=== PATIENT | female | born 1950 | race Hispanic/Latino ===

== ENCOUNTER → 2018-01-10 | Outpatient (CLI) | payer OTHER ==
[~2018-01-10] MED LIST: ASPI-555 PO; CYAN1TAB48 PO; INSU100I21 SQ; INSU200I SQ; LOSA1TAB54 PO; OMEP20CA10 PO; ROSU10TA PO; SERT50TA12 PO; UBID50TA3 PO; centrum PO; diltiazem PO; metoprolol er PO
== END | disposition home or self-care (01) ==
LOC: SHCH 08:08
PROVIDERS: ATTEND Internal Medicine Cardiovascular Disease
DX: I10 Essential (primary) hypertension (principal); E11.9 Type 2 diabetes mellitus without complications
CPT/HCPCS: 93975

== ENCOUNTER 2018-07-31 15:59 | Emergency (ER) | payer OTHER ==
[2018-07-31 16:37] LABS: BASOPHILS % (AUTO) 0.6 % (0.0-5.0); HEMATOCRIT 43.9 % (36-48); LYMPHOCYTES % (AUTO) 26.4 % (21.0-51.0); MEAN CORPUSCULAR HEMOGLOBIN 25.9 pg (27.0-33.0); MEAN CORPUSCULAR HGB CONC 33.2 g/dL (32.0-36.0); MEAN CORPUSCULAR VOLUME 78.1 fL (79-99); MONOCYTES % (AUTO) 6.1 % (3.0-13.0); NEUTROPHILS % (AUTO) 65.9 % (40.0-77.0); NUCLEATED RED BLOOD CELLS 0.1 % (0.0-0.19); PLATELET COUNT (AUTO) 294 K/uL (130-400); RED BLOOD CELL COUNT(AUTO) 5.62 MIL/uL (4.00-5.50); WHITE BLOOD COUNT (AUTO) 10.8 K/uL (4.8-10.8)
[2018-07-31 16:50] LABS: CREATININE 0.9 mg/dL (0.5-1.5); POTASSIUM 3.9 mmol/L (3.5-5.1)
[2018-07-31 16:52] LABS: INR 0.89 (0.85-1.15); PARTIAL THROMBOPLASTIN TIME 27.2 SEC (26.3-35.5); PROTHROMBIN TIME 9.4 SEC (9.6-11.6)
[2018-07-31 16:54] LABS: ALBUMIN 4.1 g/dL (3.5-5.0); BILIRUBIN,DIRECT 0.1 mg/dL (0.0-0.3); BILIRUBIN,TOTAL 0.4 mg/dL (0.2-1.0); TOTAL PROTEIN, SERUM 8.3 g/dL (6.0-8.3)
[2018-07-31] MEDS ORDERED: ONDANSETRON HCL 4 MG/2 ML VIAL ONE (16:59)
[2018-07-31] MEDS ORDERED: MORPHINE SULFATE 4 MG/1ML SYG ONE (17:00)
[2018-07-31 17:15] LABS: APPEARANCE,URINE Clear (CLEAR); BILIRUBIN,URINE Negative (NEGATIVE); COLOR,URINE Yellow (YELLOW); GLUCOSE, URINE (UA) >=1000 mg/dL (NEGATIVE); KETONES,URINE Negative (NEGATIVE); LEUKOCYTE ESTERASE ,URINE Moderate (NEGATIVE); NITRATE,URINE Negative (NEGATIVE); OCCULT BLOOD,URINE Negative (NEGATIVE); PH,URINE 5.5 (5.0-8.0); PROTEIN,URINE Negative (NEGATIVE); UROBILINOGEN,URINE 0.2 mg/dL (0.2-1.0)
[2018-07-31 17:20] LABS: BACTERIA,URINE Few /HPF (None Seen); RBC,URINE 0-1 /HPF (0-1); YEAST,URINE BUDDING Rare /HPF (None Seen)
[2018-07-31 17:21] LABS: MUCUS,URINE Rare LPF (None Seen); SQUAMOUS EPITHELIAL CELL,UR Few /HPF (0-2)
== END 2018-07-31 17:48 | disposition home or self-care (01) ==
LOC: EDH 15:59
DX: S40.011A Contusion of right shoulder, initial encounter (principal); S50.11XA Contusion of right forearm, initial encounter; S20.211A Contusion of right front wall of thorax, initial encounter; R42 Dizziness and giddiness; I10 Essential (primary) hypertension; E78.5 Hyperlipidemia, unspecified; E11.9 Type 2 diabetes mellitus without complications; Z90.710 Acquired absence of both cervix and uterus; Z79.4 Long term (current) use of insulin; Z98.890 Other specified postprocedural states; W18.39XA Other fall on same level, initial encounter; Y93.89 Activity, other specified; Y92.89 Other specified places as the place of occurrence of the external cause; Y99.8 Other external cause status
CPT/HCPCS: 36415; 70450; 73030; 73060; 73090; 80048; 80076; 81001; 82550; 84484; 85025; 85610; 85730; 93005; 96374; 96375; 99284; J2270; J2405

== ENCOUNTER → 2019-04-14 | Outpatient (CLI) | payer OTHER ==
[~2019-04-14] MED LIST changes: +OMEP-50 PO; -OMEP20CA10 PO; -ROSU10TA PO; +ROSU10TA22 PO
== END | disposition home or self-care (01) ==
LOC: RAH 10:44
PROVIDERS: ATTEND Internal Medicine Gastroenterology
DX: R10.13 Epigastric pain (principal); R14.0 Abdominal distension (gaseous); R11.2 Nausea with vomiting, unspecified
CPT/HCPCS: 78264; A9541

== ENCOUNTER → 2020-06-23 | Outpatient (CLI) | payer OTHER ==
[~2020-06-23] MED LIST changes: -ASPI-555 PO; +ASPI-556 PO; -OMEP-50 PO; +OMEP20CA12 PO
== END | disposition home or self-care (01) ==
LOC: SHCH 13:27
PROVIDERS: ATTEND Internal Medicine Cardiovascular Disease
DX: R07.9 Chest pain, unspecified (principal)
CPT/HCPCS: 93306; 93356

== ENCOUNTER → 2020-07-08 | Outpatient (CLI) | payer OTHER | END | disposition home or self-care (01) | LOC: RAH 13:45 | PROVIDERS: ATTEND Internal Medicine Cardiovascular Disease | DX: Z13.6 Encounter for screening for cardiovascular disorders (principal) | CPT/HCPCS: 75571 ==

== ENCOUNTER 2020-08-19 05:51 | Day surgery (SDC) | payer OTHER ==
[2020-08-17 11:30] VITALS: BP 122/60
[2020-08-17 11:50] LABS: BASOPHILS % (AUTO) 0.6 % (0.0-5.0); EOSINOPHILS % (AUTO) 0.3 % (0.0-8.0); HEMATOCRIT 44.2 % (36-48); MEAN CORPUSCULAR HEMOGLOBIN 25.7 pg (27.0-33.0); MEAN CORPUSCULAR HGB CONC 31.7 g/dL (32.0-36.0); MEAN CORPUSCULAR VOLUME 81.1 fL (79-99); MONOCYTES % (AUTO) 5.9 % (3.0-13.0); NEUTROPHILS % (AUTO) 68.8 % (40.0-77.0); PLATELET COUNT (AUTO) 364 K/uL (130-400); RED BLOOD CELL COUNT(AUTO) 5.45 MIL/uL (4.00-5.50); RED CELL DISTRIBUTION WIDTH 14.6 % (11.0-15.5); WHITE BLOOD COUNT (AUTO) 10.3 K/uL (4.8-10.8)
[2020-08-17 11:52] LABS: APPEARANCE,URINE Clear (CLEAR); BILIRUBIN,URINE Negative (NEGATIVE); COLOR,URINE Yellow (YELLOW); GLUCOSE, URINE (UA) >=1000 mg/dL (NEGATIVE); KETONES,URINE Negative (NEGATIVE); LEUKOCYTE ESTERASE ,URINE Trace (NEGATIVE); NITRATE,URINE Negative (NEGATIVE); OCCULT BLOOD,URINE Negative (NEGATIVE); PROTEIN,URINE Negative (NEGATIVE); UROBILINOGEN,URINE 0.2 mg/dL (0.2-1.0)
[2020-08-17 11:55] LABS: CREATININE 1.1 mg/dL (0.5-1.5); POTASSIUM 4.8 mmol/L (3.5-5.1)
[2020-08-17 12:01] LABS: BACTERIA,URINE Few /HPF (None Seen); RBC,URINE 0-1 /HPF (0-1); WBC,URINE 0-1 /HPF (0-1); YEAST,URINE BUDDING Few /HPF (None Seen)
[2020-08-17 12:01] LABS: INR 0.96 (0.85-1.15); PROTHROMBIN TIME 10.3 SEC (9.6-11.6)
[2020-08-17 12:02] LABS: PARTIAL THROMBOPLASTIN TIME 27.3 SEC (26.3-35.5)
[2020-08-19] VITALS (9 sets, daily range): BP systolic 125–145; BP diastolic 50–67
[~2020-08-19] VITALS: Ht 160 cm; Wt 72.3 kg
[~2020-08-19 05:51] MED LIST changes: +CANA300T PO; -CYAN1TAB48 PO; +DULA1.5P SQ; +FLUT16H NS; +HC2530O TP; +HYDR25TA PO; +INSU100I13 SQ; -INSU100I21 SQ; -INSU200I SQ; +LOSA100T58 PO; -LOSA1TAB54 PO; +METF-446 PO; -OMEP20CA12 PO; +PANT40TA54 PO; -ROSU10TA22 PO; +SERT100T12 PO; -SERT50TA12 PO; +SODIUM CHLORIDE 0.9% 500ML 500 ML IV SCH; +SUCR1TAB2 PO; -UBID50TA3 PO; +WHEA1POW2 PO; +[UNRECOGNIZED DRUG - OTHER] TP; -centrum PO; -metoprolol er PO
[2020-08-19] MEDS ORDERED: SODIUM CHLORIDE 0.9% 1000ML 1,000 ML IV ONE (07:26)
[2020-08-19] MEDS ORDERED: SODIUM BICARB 50MEQ 50ML VIAL 50 ML ONE (09:21)
[2020-08-19] MEDS ORDERED: IOHEXOL-350 50ML VIAL IV ONE (09:21)
[2020-08-19] MEDS ORDERED: HEPARIN SODIUM 1000UNIT/ML 10ML VIAL ONE (09:21)
[2020-08-19] MEDS ORDERED: IOHEXOL 350 MG/ML 100ML INFUS..BTL IV ONE (09:21)
[2020-08-19] MEDS ORDERED: NITROGLYCERIN 2 MG/VIAL VIAL IV ONE (09:21)
[2020-08-19] MEDS ORDERED: MEPERIDINE-PF 25 MG/ML SYG ONE ×2 (09:21→10:03)
[2020-08-19] MEDS ORDERED: LIDOCAINE HCL 2% 20ML ONE (09:22)
[2020-08-19] MEDS ORDERED: MIDAZOLAM HCL 1 MG/ML 2ML VIAL ONE ×2 (09:22→10:03)
[2020-08-19] MEDS ORDERED: NICARDIPINE HCL 25 MG/10 ML ML IV ONE (09:22)
[2020-08-19] MEDS ORDERED: DEXTROSE 50%-WATER 50 ML DISP.SYRIN IV PRN (10:45)
[2020-08-19] MEDS ORDERED: SODIUM CHLORIDE 0.9% 1000ML 1,000 ML IV SCH (10:45)
[2020-08-19] MEDS ORDERED: INSULIN HUMULIN R 100 UNIT/ML 3ML SQ SCH (11:30)
== END 2020-08-19 15:00 | disposition home or self-care (01) ==
LOC: DAH 05:51
PROVIDERS: ATTEND Internal Medicine Cardiovascular Disease
DX: I25.119 Atherosclerotic heart disease of native coronary artery with unspecified angina pectoris (principal); E11.9 Type 2 diabetes mellitus without complications; E78.5 Hyperlipidemia, unspecified; G47.33 Obstructive sleep apnea (adult) (pediatric); M79.7 Fibromyalgia; F41.9 Anxiety disorder, unspecified; E66.9 Obesity, unspecified; Z79.4 Long term (current) use of insulin; Z79.899 Other long term (current) drug therapy; Z98.890 Other specified postprocedural states; Z82.49 Family history of ischemic heart disease and other diseases of the circulatory system; Z79.01 Long term (current) use of anticoagulants
CPT/HCPCS: 36415; 71045; 80048; 81001; 82948 ×2; 85025; 85610; 85730; 93005; 93458; C1769 ×2; C1894; J1644 ×2; J1815; J2175 ×2; J2250 ×2; J3490 ×4; J7030; Q9965; Q9967 ×2; 99156; 99157

== ENCOUNTER 2020-12-27 11:25 | Emergency (ER) | payer OTHER ==
[~2020-12-27 11:25] MED LIST changes: +SERT-440 PO; -SERT100T12 PO; -SODIUM CHLORIDE 0.9% 500ML 500 ML IV SCH
[2020-12-27] MEDS ORDERED: HYDROCODONE/ACETAMINOPHEN 10/325 MG TAB ONE (11:55)
== END 2020-12-27 12:50 | disposition home or self-care (01) ==
LOC: EDH 11:25
DX: S93.491A Sprain of other ligament of right ankle, initial encounter (principal); M25.561 Pain in right knee; E11.9 Type 2 diabetes mellitus without complications; I10 Essential (primary) hypertension; E78.5 Hyperlipidemia, unspecified; Z88.2 Allergy status to sulfonamides; Z88.1 Allergy status to other antibiotic agents; Z90.710 Acquired absence of both cervix and uterus; Z98.890 Other specified postprocedural states; X58.XXXA Exposure to other specified factors, initial encounter; Y93.89 Activity, other specified; Y92.89 Other specified places as the place of occurrence of the external cause; Y99.8 Other external cause status
CPT/HCPCS: 73562; 73600; 73630

== ENCOUNTER 2021-01-26 08:02 | Day surgery (SDC) | payer OTHER ==
[2021-01-24 10:14] LABS: BASOPHILS % (AUTO) 0.5 % (0.0-5.0); EOSINOPHILS % (AUTO) 0.5 % (0.0-8.0); HEMATOCRIT 43.9 % (36-48); LYMPHOCYTES % (AUTO) 18.2 % (21.0-51.0); MEAN CORPUSCULAR HEMOGLOBIN 25.5 pg (27.0-33.0); MEAN CORPUSCULAR HGB CONC 31.2 g/dL (32.0-36.0); MEAN CORPUSCULAR VOLUME 81.8 fL (79-99); NEUTROPHILS % (AUTO) 74.4 % (40.0-77.0); PLATELET COUNT (AUTO) 318 K/uL (130-400); RED BLOOD CELL COUNT(AUTO) 5.37 MIL/uL (4.00-5.50); RED CELL DISTRIBUTION WIDTH 14.6 % (11.0-15.5)
[2021-01-24 10:21] LABS: CREATININE 0.8 mg/dL (0.5-1.5); POTASSIUM 4.1 mmol/L (3.5-5.1)
[2021-01-25 12:23] VITALS: BP 140/70
[~2021-01-26] VITALS: Ht 160 cm; Wt 74.7 kg
[2021-01-26] VITALS (19 sets, daily range): BP systolic 103–119; BP diastolic 47–65
[~2021-01-26 08:02] MED LIST changes: -ASPI-556 PO; +DILT240C94 PO; +FAMO40TA7 PO; -FLUT16H NS; -HC2530O TP; +HUMLIS7525 SQ; -INSU100I13 SQ; +PRAV40TA3 PO; -SUCR1TAB2 PO; -WHEA1POW2 PO; -[UNRECOGNIZED DRUG - OTHER] TP; -diltiazem PO
[2021-01-26] MEDS ORDERED: LACTATED RINGERS 1000ML 0 ML IV ONE (08:23)
[2021-01-26] MEDS ORDERED: CEFAZOLIN SODIUM 1 GM VIAL ONE (08:23)
[2021-01-26] MEDS ORDERED: 0.9%NACL 1000ML 1,000 ML IV ONE (08:34)
[2021-01-26] MEDS ORDERED: DEXAMETHASONE SOD PHOSPHATE 10MG/ML 1ML VIAL ONE (09:57)
[2021-01-26] MEDS ORDERED: SUCCINYLCHOLINE CHLORIDE 20 MG/ML 10 ML VIAL ONE (09:57)
[2021-01-26] MEDS ORDERED: ONDANSETRON 4MG INJ ONE (09:57)
[2021-01-26] MEDS ORDERED: LIDOCAINE PF 100MG/5ML (2%) SYRINGE 5ML ONE (09:57)
[2021-01-26] MEDS ORDERED: NEOSTIGMINE 5MG/5ML SYR IV ONE (09:58)
[2021-01-26] MEDS ORDERED: ROCURONIUM 10MG/1ML SYR 10 MG/ML ML ONE (09:58)
[2021-01-26] MEDS ORDERED: PROPOFOL 10 MG/ML 20ML VIAL IV ONE (09:58)
[2021-01-26] MEDS ORDERED: MIDAZOLAM HCL 1 MG/ML 2ML VIAL ONE (09:58)
[2021-01-26] MEDS ORDERED: GLYCOPYRROLATE 1 MG/5 ML SYRINGE ONE (09:58)
[2021-01-26] MEDS ORDERED: FENTANYL CITRATE PF 50 MCG/1 ML 5ML AMP IV ONE (09:59)
[2021-01-26] MEDS ORDERED: MEPERIDINE-PF 25 MG/ML SYG ONE ×3 (10:02→12:54)
[2021-01-26] MEDS ORDERED: CLINDAMYCIN IVPB 900MG/50ML 50 ML IV ONE (10:08)
[2021-01-26] MEDS ORDERED: CLINDAMYCIN 900MG/6ML INJ ONE (10:20)
[2021-01-26] MEDS ORDERED: EPHEDRINE SULFATE 50 MG/ML AMPULE ONE (10:48)
[2021-01-26] MEDS ORDERED: ACET1TAB25 PO (12:43)
[2021-01-26] MEDS ORDERED: CLIN300C10 PO (12:43)
[2021-01-26] MEDS ORDERED: MORPHINE 2 MG SYG ONE (13:14)
== END 2021-01-26 15:10 | disposition home or self-care (01) ==
LOC: DAH 08:02
PROVIDERS: ATTEND Orthopaedic Surgery
DX: T84.84XA Pain due to internal orthopedic prosthetic devices, implants and grafts, initial encounter (principal); Z20.822 Contact with and (suspected) exposure to COVID-19; M71.379 Other bursal cyst, unspecified ankle and foot; I10 Essential (primary) hypertension; K21.9 Gastro-esophageal reflux disease without esophagitis; E78.5 Hyperlipidemia, unspecified; E11.9 Type 2 diabetes mellitus without complications; G47.33 Obstructive sleep apnea (adult) (pediatric); E66.9 Obesity, unspecified; F41.9 Anxiety disorder, unspecified; M79.7 Fibromyalgia; Z82.49 Family history of ischemic heart disease and other diseases of the circulatory system; Z98.890 Other specified postprocedural states; Z88.8 Allergy status to other drugs, medicaments and biological substances; Z88.2 Allergy status to sulfonamides; Z87.81 Personal history of (healed) traumatic fracture; Z90.710 Acquired absence of both cervix and uterus; Y83.8 Other surgical procedures as the cause of abnormal reaction of the patient, or of later complication, without mention of misadventure at the time of the procedure
CPT/HCPCS: 20680; 36415; 73610; 80048; 82948; 85025; 87635; 93005; A4215; A4221; A4222; A4223; A4649; A4930 ×2; A5120; A6223; C9803; J0330; J0690; J1100; J2001; J2175 ×3; J2250; J2405; J2704; J2710; J3010; J3490 ×3; J7030; J7120

== ENCOUNTER → 2022-02-27 | Outpatient (CLI) | payer OTHER ==
[~2022-02-27] MED LIST changes: +ACET-2079 PO; +CLIN-141 PO
== END | disposition home or self-care (01) ==
LOC: SHCH 11:21
PROVIDERS: ATTEND Internal Medicine Cardiovascular Disease
DX: I50.32 Chronic diastolic (congestive) heart failure (principal)
CPT/HCPCS: 93306

== ENCOUNTER → 2022-03-21 | Outpatient (CLI) | payer OTHER ==
[~2022-03-21] MED LIST changes: +IOHEXOL 350 MG/ML 100ML INFUS..BTL IV ONE; +METOPROLOL TARTRATE 1 MG/ML 5ML VIAL IV ONE
== END | disposition home or self-care (01) ==
LOC: RAH 08:53
PROVIDERS: ATTEND Internal Medicine Cardiovascular Disease
DX: I25.119 Atherosclerotic heart disease of native coronary artery with unspecified angina pectoris (principal); I10 Essential (primary) hypertension
CPT/HCPCS: 75574; J3490; Q9967

== ENCOUNTER → 2022-08-30 | Outpatient (CLI) | payer OTHER ==
[~2022-08-30] MED LIST changes: +CEFU500T67 PO; -IOHEXOL 350 MG/ML 100ML INFUS..BTL IV ONE; -METOPROLOL TARTRATE 1 MG/ML 5ML VIAL IV ONE
== END | disposition home or self-care (01) ==
LOC: RAH 09:25
PROVIDERS: ATTEND Internal Medicine Gastroenterology
DX: K44.9 Diaphragmatic hernia without obstruction or gangrene (principal)
CPT/HCPCS: 74240

== ENCOUNTER 2022-08-31 14:59 | Emergency (ER) | payer OTHER ==
[~2022-08-31] VITALS: Ht 160 cm; Wt 74.8 kg
[~2022-08-31 14:59] MED LIST changes: -CEFU500T67 PO
[2022-08-31 15:55] LABS: BASOPHILS % (AUTO) 0.5 % (0.0-5.0); EOSINOPHILS % (AUTO) 1.3 % (0.0-8.0); HEMATOCRIT 40.7 % (36-48); LYMPHOCYTES % (AUTO) 25.8 % (21.0-51.0); MEAN CORPUSCULAR HEMOGLOBIN 25.2 pg (27.0-33.0); MEAN CORPUSCULAR HGB CONC 31.9 g/dL (32.0-36.0); MEAN CORPUSCULAR VOLUME 78.9 fL (79-99); MONOCYTES % (AUTO) 7.7 % (3.0-13.0); NEUTROPHILS % (AUTO) 64.4 % (40.0-77.0); PLATELET COUNT (AUTO) 279 K/uL (130-400); RED BLOOD CELL COUNT(AUTO) 5.16 MIL/uL (4.00-5.50); RED CELL DISTRIBUTION WIDTH 15.2 % (11.0-15.5); WHITE BLOOD COUNT (AUTO) 10.3 K/uL (4.8-10.8)
[2022-08-31 15:58] LABS: APPEARANCE,URINE CLOUDY (CLEAR); BILIRUBIN,URINE NEGATIVE (NEGATIVE); COLOR,URINE LIGHT-YELLOW (YELLOW); GLUCOSE, URINE (UA) >=1000 mg/dL (NEGATIVE); KETONES,URINE NEGATIVE (NEGATIVE); LEUKOCYTE ESTERASE ,URINE 500 Leu/uL (NEGATIVE); NITRATE,URINE NEGATIVE (NEGATIVE); OCCULT BLOOD,URINE NEGATIVE (NEGATIVE); PH,URINE 5.5 (5.0-8.0); PROTEIN,URINE NEGATIVE (NEGATIVE); UROBILINOGEN,URINE 0.2 mg/dL (0.2-1.0)
[2022-08-31 16:03] LABS: BACTERIA,URINE FEW /HPF (None Seen); RBC,URINE 0-1 /HPF (0-1); SQUAMOUS EPITHELIAL CELL,UR RARE /HPF (0-2); WBC,URINE >100 /HPF (0-1)
[2022-08-31 16:06] LABS: CREATININE 0.9 mg/dL (0.5-1.5); POTASSIUM 3.5 mmol/L (3.5-5.1)
[2022-08-31 16:17] LABS: B-TYPE NATRIURETIC PEPTIDE 32 pg/mL (0-100)
[2022-08-31 16:19] LABS: ALBUMIN 3.8 g/dL (3.5-5.0); MAGNESIUM 1.4 mg/dL (1.80-2.40); TOTAL PROTEIN, SERUM 7.5 g/dL (6.0-8.3)
[2022-08-31] MEDS ORDERED: MAGNESIUM OXIDE 400 MG TABLET PO ONE (16:30)
[2022-08-31] MEDS ORDERED: CEFTRIAXONE 1G VIAL IM ONE (17:00)
[2022-08-31] MEDS ORDERED: CEFU500T67 PO (18:19)
[2022-08-31 18:30] VITALS: BP 128/55
== END 2022-08-31 18:30 | disposition home or self-care (01) ==
LOC: EDH 14:59
DX: E11.649 Type 2 diabetes mellitus with hypoglycemia without coma (principal); T38.3X5A Adverse effect of insulin and oral hypoglycemic [antidiabetic] drugs, initial encounter; N39.0 Urinary tract infection, site not specified; E11.9 Type 2 diabetes mellitus without complications; E78.00 Pure hypercholesterolemia, unspecified; I11.9 Hypertensive heart disease without heart failure; Z79.899 Other long term (current) drug therapy; Z88.2 Allergy status to sulfonamides; Z88.0 Allergy status to penicillin; Z79.4 Long term (current) use of insulin; Z79.84 Long term (current) use of oral hypoglycemic drugs; Y92.89 Other specified places as the place of occurrence of the external cause
CPT/HCPCS: 99284; 83735; 84484; 80053; 83880; 85025; 87077; 87088; 87186; 82948 ×2; 81001; 36415; 96372; 93005; J0696 ×2

== ENCOUNTER 2022-11-10 12:08 | Observation (INO) | payer OTHER ==
[~2022-11-10] VITALS: Ht 160 cm; Wt 77.0 kg
[~2022-11-10 12:08] MED LIST changes: +CEFU500T67 PO
[2022-11-10 12:32] LABS: BASOPHILS % (AUTO) 0.7 % (0.0-5.0); EOSINOPHILS % (AUTO) 1.5 % (0.0-8.0); HEMATOCRIT 41.2 % (36-48); LYMPHOCYTES % (AUTO) 26.8 % (21.0-51.0); MEAN CORPUSCULAR HEMOGLOBIN 24.6 pg (27.0-33.0); MEAN CORPUSCULAR HGB CONC 31.6 g/dL (32.0-36.0); MEAN CORPUSCULAR VOLUME 77.9 fL (79-99); MONOCYTES % (AUTO) 7.8 % (3.0-13.0); NEUTROPHILS % (AUTO) 62.9 % (40.0-77.0); PLATELET COUNT (AUTO) 292 K/uL (130-400); RED BLOOD CELL COUNT(AUTO) 5.29 MIL/uL (4.00-5.50); RED CELL DISTRIBUTION WIDTH 16.5 % (11.0-15.5); WHITE BLOOD COUNT (AUTO) 9.2 K/uL (4.8-10.8)
[2022-11-10 12:51] LABS: ALBUMIN 3.8 g/dL (3.5-5.0); POTASSIUM 4.9 mmol/L (3.5-5.1); TOTAL PROTEIN, SERUM 7.5 g/dL (6.0-8.3)
[2022-11-10 13:31] LABS: APPEARANCE,URINE CLOUDY (CLEAR); BILIRUBIN,URINE NEGATIVE (NEGATIVE); COLOR,URINE LIGHT-YELLOW (YELLOW); GLUCOSE, URINE (UA) >=1000 mg/dL (NEGATIVE); KETONES,URINE NEGATIVE (NEGATIVE); LEUKOCYTE ESTERASE ,URINE 250 Leu/uL (NEGATIVE); NITRATE,URINE 2+ (NEGATIVE); OCCULT BLOOD,URINE NEGATIVE (NEGATIVE); PROTEIN,URINE NEGATIVE (NEGATIVE); UROBILINOGEN,URINE 0.2 mg/dL (0.2-1.0)
[2022-11-10 13:36] LABS: BACTERIA,URINE RARE /HPF (None Seen); MUCUS,URINE RARE LPF (None Seen); SQUAMOUS EPITHELIAL CELL,UR RARE /HPF (0-2); WBC,URINE 51-100 /HPF (0-1)
[2022-11-10] MEDS ORDERED: IPRATROPIUM 0.5 MG/2.5 ML INH IH PRN (18:30)
[2022-11-10] MEDS ORDERED: CLONIDINE HCL 0.1 MG TABLET PO PRN (18:30)
[2022-11-10] MEDS ORDERED: ACETAMINOPHEN 650 MG SUPPOSITORY RC PRN (18:30)
[2022-11-10] MEDS ORDERED: HYDRALAZINE 20MG/ML VIAL IV PRN (18:30)
[2022-11-10] MEDS ORDERED: DOCUSATE SODIUM 100 MG CAP PO PRN (18:30)
[2022-11-10] MEDS ORDERED: ONDANSETRON 4MG INJ IVP PRN (18:30)
[2022-11-10] MEDS ORDERED: ACETAMINOPHEN 325 MG TAB PO PRN (18:30)
[2022-11-10] MEDS ORDERED: LACTULOSE 20 GM/30 ML UDCUP PO PRN (18:30)
[2022-11-10] MEDS ORDERED: LABETALOL 20MG SYG IV PRN (18:30)
[2022-11-10] MEDS ORDERED: TEMAZEPAM 15 MG CAPSULE PO PRN (18:30)
[2022-11-10] MEDS: INSULIN HUMULIN R 100 UNIT/ML 3ML SQ SCH (20:46)
[2022-11-10] MEDS ORDERED: LEVOFLOXACIN 500 MG/D5W 100 ML 100 ML IV SCH (21:30)
[2022-11-10 21:42] VITALS: BP 145/64
[2022-11-10] MEDS ORDERED: LOSA50TA64 PO (22:25)
[2022-11-10] MEDS ORDERED: MULT-1250 PO (22:26)
[2022-11-10] MEDS ORDERED: BENZ200C53 PO (22:27)
[2022-11-10] MEDS ORDERED: ROSU20TA31 PO (22:28)
[2022-11-10] MEDS ORDERED: ONDA-104 PO (22:32)
[2022-11-10] MEDS ORDERED: DOCU100C33 PO (22:33)
[2022-11-10] MEDS ORDERED: EMPA25TA PO (22:34)
[2022-11-10] MEDS ORDERED: FAMO40TA7 PO (22:35)
[2022-11-10] MEDS ORDERED: INSU100V37 SQ (22:42)
[2022-11-10 23:59] VITALS: BP 135/78
[2022-11-11 03:51] LABS: BASOPHILS % (AUTO) 0.8 % (0.0-5.0); EOSINOPHILS % (AUTO) 2.8 % (0.0-8.0); HEMATOCRIT 39.4 % (36-48); LYMPHOCYTES % (AUTO) 30.8 % (21.0-51.0); MEAN CORPUSCULAR HEMOGLOBIN 24.8 pg (27.0-33.0); MEAN CORPUSCULAR HGB CONC 31.7 g/dL (32.0-36.0); NEUTROPHILS % (AUTO) 55.2 % (40.0-77.0); PLATELET COUNT (AUTO) 284 K/uL (130-400); RED BLOOD CELL COUNT(AUTO) 5.05 MIL/uL (4.00-5.50); RED CELL DISTRIBUTION WIDTH 16.6 % (11.0-15.5); WHITE BLOOD COUNT (AUTO) 7.4 K/uL (4.8-10.8)
[2022-11-11 04:17] LABS: MAGNESIUM 1.7 mg/dL (1.80-2.40); PHOSPHORUS 5.2 mg/dL (2.5-4.9); POTASSIUM 3.7 mmol/L (3.5-5.1); THYROID STIMULATING HORMONE 2.47 uIU/mL (0.36-3.74)
[2022-11-11 04:19] VITALS: BP 128/70
[2022-11-11] MEDS ORDERED: POTASSIUM CHLORIDE 20MEQ/100ML 100 ML IV PRN (05:30)
[2022-11-11] MEDS ORDERED: MAGNESIUM 2GM PREMIX 50ML 50 ML IV PRN (05:30)
[2022-11-11] MEDS ORDERED: POTASSIUM CHLORIDE 10% ELIXIR 20 MEQ/15 ML UDCUP PO PRN (05:30)
[2022-11-11] MEDS: KCL 20 MEQ ERTAB PO PRN ×2 (05:48→09:23)
[2022-11-11] MEDS: INSULIN HUMULIN R 100 UNIT/ML 3ML SQ SCH ×2 (06:06→11:30)
[2022-11-11 08:00] VITALS: BP 140/79
[2022-11-11] MEDS ORDERED: DOCUSATE SODIUM 100 MG CAP PO SCH (09:00)
[2022-11-11] MEDS ORDERED: LOSARTAN 50 MG TABLET PO SCH (09:00)
[2022-11-11] MEDS ORDERED: ENOXAPARIN SODIUM 40 MG/0.4 ML SYRINGE SQ SCH (09:00)
[2022-11-11] MEDS ORDERED: ASPIRIN 81MG CHEW TAB PO SCH (09:00)
[2022-11-11] MEDS ORDERED: ATORVASTATIN 40 MG TABLET PO SCH (09:00)
[2022-11-11 12:00] VITALS: BP 141/86
[2022-11-11] MEDS ORDERED: LEVO-70 PO (15:04)
[2022-11-11] MEDS ORDERED: SERTRALINE HCL 50 MG TABLET PO SCH (21:00)
[2022-11-11] MEDS ORDERED: DILTIAZEM 120MG SR CAP PO SCH (21:00)
== END 2022-11-11 16:22 | disposition home or self-care (01) ==
LOC: EDH 12:08 → EDHIP 18:15 → 2AH 21:16
PROVIDERS: ADMIT Internal Medicine; ATTEND Internal Medicine
DX: K29.70 Gastritis, unspecified, without bleeding (principal); N30.00 Acute cystitis without hematuria; R07.89 Other chest pain; I11.0 Hypertensive heart disease with heart failure; I50.33 Acute on chronic diastolic (congestive) heart failure; E11.649 Type 2 diabetes mellitus with hypoglycemia without coma; E78.00 Pure hypercholesterolemia, unspecified; M79.7 Fibromyalgia; Z79.82 Long term (current) use of aspirin; Z88.2 Allergy status to sulfonamides; Z98.61 Coronary angioplasty status; Z79.899 Other long term (current) drug therapy; Z98.890 Other specified postprocedural states; Z79.4 Long term (current) use of insulin; Z79.84 Long term (current) use of oral hypoglycemic drugs
CPT/HCPCS: 96372 ×2; 96365; 99285; 84484 ×3; 80053; 83880; 85025 ×2; 85378; 87077; 87088; 87186; 82948 ×4; 81001; 36415 ×2; 71045; 93005 ×2; 94640; 96367; 84443; 83735; 84100; 80048; 74176; 93306; 93356; G0378 ×21; J1956; J1815; J3475; J1650

== ENCOUNTER 2023-01-15 19:53 | Emergency (ER) | payer OTHER ==
[~2023-01-15] VITALS: Ht 160 cm; Wt 77.1 kg
[~2023-01-15 19:53] MED LIST changes: -ACET-2079 PO; +BENZ200C53 PO; -CANA300T PO; -CEFU500T67 PO; -CLIN-141 PO; +DILT240C81 PO; -DILT240C94 PO; +DOCU100C33 PO; +EMPA25TA PO; -HUMLIS7525 SQ; -HYDR25TA PO; +INSU100V37 SQ; +LEVO-70 PO; -LOSA100T58 PO; +LOSA50TA64 PO; +MULT-1250 PO; +ONDA-104 PO; -PRAV40TA3 PO; +ROSU20TA73 PO
[2023-01-15 20:31] LABS: BASOPHILS % (AUTO) 0.6 % (0.0-5.0); EOSINOPHILS % (AUTO) 2.2 % (0.0-8.0); LYMPHOCYTES % (AUTO) 29.3 % (21.0-51.0); MEAN CORPUSCULAR HEMOGLOBIN 24.1 pg (27.0-33.0); MEAN CORPUSCULAR HGB CONC 31.5 g/dL (32.0-36.0); MEAN CORPUSCULAR VOLUME 76.6 fL (79-99); MONOCYTES % (AUTO) 9.1 % (3.0-13.0); NEUTROPHILS % (AUTO) 58.6 % (40.0-77.0); PLATELET COUNT (AUTO) 259 K/uL (130-400); RED BLOOD CELL COUNT(AUTO) 5.22 MIL/uL (4.00-5.50); RED CELL DISTRIBUTION WIDTH 15.6 % (11.0-15.5); WHITE BLOOD COUNT (AUTO) 8.9 K/uL (4.8-10.8)
[2023-01-15 20:38] LABS: CREATININE 0.8 mg/dL (0.5-1.5); POTASSIUM 3.5 mmol/L (3.5-5.1)
[2023-01-15 20:47] LABS: ALBUMIN 3.8 g/dL (3.5-5.0); TOTAL PROTEIN, SERUM 7.3 g/dL (6.0-8.3)
[2023-01-15 21:01] LABS: APPEARANCE,URINE CLEAR (CLEAR); BILIRUBIN,URINE NEGATIVE (NEGATIVE); COLOR,URINE YELLOW (YELLOW); GLUCOSE, URINE (UA) 500 mg/dL (NEGATIVE); KETONES,URINE NEGATIVE (NEGATIVE); LEUKOCYTE ESTERASE ,URINE NEGATIVE Leu/uL (NEGATIVE); NITRATE,URINE NEGATIVE (NEGATIVE); OCCULT BLOOD,URINE NEGATIVE (NEGATIVE); PROTEIN,URINE NEGATIVE (NEGATIVE); UROBILINOGEN,URINE 0.2 mg/dL (0.2-1.0)
[2023-01-15 21:07] LABS: RBC,URINE 0-1 /HPF (0-1)
[2023-01-15 21:08] LABS: BACTERIA,URINE None Seen /HPF (None Seen); SQUAMOUS EPITHELIAL CELL,UR 0-2 /HPF (0-2); WBC,URINE 0-1 /HPF (0-1)
[2023-01-15] MEDS ORDERED: NITR.4 SL (22:17)
[2023-01-15] MEDS ORDERED: ASPI-1005 PO (22:17)
== END 2023-01-15 22:52 | disposition home or self-care (01) ==
LOC: EDH 19:53
DX: R07.89 Other chest pain (principal); E11.9 Type 2 diabetes mellitus without complications; E78.00 Pure hypercholesterolemia, unspecified; M79.7 Fibromyalgia; Z59.00 Homelessness unspecified; Z79.4 Long term (current) use of insulin; Z79.82 Long term (current) use of aspirin; Z79.84 Long term (current) use of oral hypoglycemic drugs; Z79.899 Other long term (current) drug therapy; Z88.0 Allergy status to penicillin; Z88.2 Allergy status to sulfonamides
CPT/HCPCS: 36415; 71045; 80053; 81001; 84484; 85025; 93005

== ENCOUNTER → 2023-06-01 | Outpatient (CLI) | payer OTHER ==
[~2023-06-01] MED LIST changes: +ASPI-1005 PO; +NITR.4 SL
[2023-06-01 15:31] LABS: CREATININE 0.8 mg/dL (0.5-1.5); POTASSIUM 3.6 mmol/L (3.5-5.1)
== END | disposition home or self-care (01) ==
LOC: LAB 13:05
PROVIDERS: ATTEND Physician Assistant
DX: I10 Essential (primary) hypertension (principal)
CPT/HCPCS: 36415; 80048

== ENCOUNTER → 2023-06-13 | Outpatient (CLI) | payer OTHER ==
[~2023-06-13] MED LIST changes: +IOHEXOL 350 MG/ML 100ML INFUS..BTL IV ONE; +METOPROLOL TARTRATE 1 MG/ML 5ML VIAL IV ONE
== END | disposition home or self-care (01) ==
LOC: RAH 07:58
PROVIDERS: ATTEND Internal Medicine Cardiovascular Disease
DX: I25.10 Atherosclerotic heart disease of native coronary artery without angina pectoris (principal); R61 Generalized hyperhidrosis
CPT/HCPCS: 75574; J3490 ×2; Q9967

== ENCOUNTER 2023-07-02 12:58 | Emergency (ER) | payer OTHER ==
[~2023-07-02] VITALS: Ht 160 cm; Wt 89.8 kg
[~2023-07-02 12:58] MED LIST changes: -IOHEXOL 350 MG/ML 100ML INFUS..BTL IV ONE; -METOPROLOL TARTRATE 1 MG/ML 5ML VIAL IV ONE
[2023-07-02 14:54] VITALS: BP 198/91; PULSE 78; RESP 18
[2023-07-02] MEDS ORDERED: IBUP-2070 PO (17:51)
[2023-07-02] MEDS ORDERED: KETOROLAC 30MG VIAL (30MG/ML) IM ONE (18:00)
[2023-07-02 18:47] LABS: APPEARANCE,URINE CLOUDY (CLEAR); BILIRUBIN,URINE NEGATIVE (NEGATIVE); COLOR,URINE LIGHT-ORANGE (YELLOW); GLUCOSE, URINE (UA) 200 mg/dL (NEGATIVE); KETONES,URINE NEGATIVE (NEGATIVE); LEUKOCYTE ESTERASE ,URINE 500 Leu/uL (NEGATIVE); NITRATE,URINE NEGATIVE (NEGATIVE); OCCULT BLOOD,URINE SMALL (NEGATIVE); PROTEIN,URINE NEGATIVE (NEGATIVE); UROBILINOGEN,URINE 0.2 mg/dL (0.2-1.0)
[2023-07-02 18:48] LABS: ADD UA MICROSCOPIC YES
[2023-07-02 18:52] LABS: BACTERIA,URINE FEW /HPF (None Seen); MUCUS,URINE RARE LPF (None Seen); NON-SQUAMOUS EPITHELIAL CELL 2 /HPF (0-2); WBC CLUMP FEW /HPF (0-1); WBC,URINE 51-100 /HPF (0-1)
[2023-07-02] MEDS ORDERED: NITR100C PO (18:54)
[2023-07-02] MEDS ORDERED: PHEN-847 PO (19:00)
== END 2023-07-02 19:53 | disposition home or self-care (01) ==
LOC: EDH 12:58
DX: S93.401A Sprain of unspecified ligament of right ankle, initial encounter (principal); S93.402A Sprain of unspecified ligament of left ankle, initial encounter; N39.0 Urinary tract infection, site not specified; E11.9 Type 2 diabetes mellitus without complications; I10 Essential (primary) hypertension; I25.10 Atherosclerotic heart disease of native coronary artery without angina pectoris; Z79.4 Long term (current) use of insulin; Z79.82 Long term (current) use of aspirin; Z79.84 Long term (current) use of oral hypoglycemic drugs; Z79.899 Other long term (current) drug therapy; Z88.0 Allergy status to penicillin; Z88.2 Allergy status to sulfonamides; W18.39XA Other fall on same level, initial encounter; Y93.89 Activity, other specified; Y92.89 Other specified places as the place of occurrence of the external cause; Y99.8 Other external cause status
CPT/HCPCS: 99284; 87077; 87088; 87186; 81001; 73600 ×2; 73630 ×2; 96372; J1885

== ENCOUNTER 2023-08-13 07:01 | Day surgery (SDC) | payer OTHER ==
[2023-08-09 11:01] VITALS: BP 136/62; PULSE 69; RESP 17
[2023-08-09 11:02] LABS: BASOPHILS # (AUTO) 0.08 K/uL (0.00-0.20); BASOPHILS % (AUTO) 0.8 % (0.0-5.0); EOSINOPHILS # (AUTO) 0.18 K/uL (0.00-0.70); EOSINOPHILS % (AUTO) 1.8 % (0.0-8.0); HEMATOCRIT 42.3 % (36-48); IMMATURE GRANULOCYTE ABSOLUTE 0.03 K/uL (0-1); LYMPHOCYTES # (AUTO) 2.2 K/uL (1.0-4.8); LYMPHOCYTES % (AUTO) 22.1 % (21.0-51.0); MEAN CORPUSCULAR HEMOGLOBIN 25.7 pg (27.0-33.0); MEAN CORPUSCULAR HGB CONC 31.7 g/dL (32.0-36.0); MONOCYTES # (AUTO) 0.6 K/uL (0.1-1.0); MONOCYTES % (AUTO) 5.6 % (3.0-13.0); NEUTROPHILS # (AUTO) 7.1 K/uL (1.8-7.7); NEUTROPHILS % (AUTO) 69.4 % (40.0-77.0); PLATELET COUNT (AUTO) 258 K/uL (130-400); RED BLOOD CELL COUNT(AUTO) 5.22 MIL/uL (4.00-5.50); RED CELL DISTRIBUTION WIDTH 17.3 % (11.0-15.5); WHITE BLOOD COUNT (AUTO) 10.2 K/uL (4.8-10.8)
[2023-08-09 11:04] LABS: CREATININE 0.9 mg/dL (0.5-1.5)
[2023-08-09 11:11] LABS: INR < 0.93 (0.85-1.15); PROTHROMBIN TIME 10.4 SEC (9.6-11.6)
[2023-08-09 11:13] LABS: PARTIAL THROMBOPLASTIN TIME 28.4 SEC (26.3-35.5)
[2023-08-09 11:25] LABS: B-TYPE NATRIURETIC PEPTIDE 21 pg/mL (0-100)
[2023-08-09 11:37] LABS: APPEARANCE,URINE CLEAR (CLEAR); BILIRUBIN,URINE NEGATIVE (NEGATIVE); COLOR,URINE LIGHT-YELLOW (YELLOW); GLUCOSE, URINE (UA) >=1000 mg/dL (NEGATIVE); KETONES,URINE NEGATIVE (NEGATIVE); LEUKOCYTE ESTERASE ,URINE NEGATIVE Leu/uL (NEGATIVE); NITRATE,URINE NEGATIVE (NEGATIVE); OCCULT BLOOD,URINE NEGATIVE (NEGATIVE); PH,URINE 5.5 (5.0-8.0); PROTEIN,URINE NEGATIVE (NEGATIVE); UROBILINOGEN,URINE 0.2 mg/dL (0.2-1.0)
[2023-08-09 11:39] LABS: ADD UA MICROSCOPIC YES
[2023-08-09 12:01] LABS: MUCUS,URINE RARE LPF (None Seen); SQUAMOUS EPITHELIAL CELL,UR FEW /HPF (0-2)
[~2023-08-13] VITALS: Ht 160 cm; Wt 71.7 kg
[2023-08-13] VITALS (10 sets, daily range): BP systolic 101–136; BP diastolic 58–71; PULSE 59–67; RESP 14–16
[~2023-08-13 07:01] MED LIST changes: +ACET-2079 PO; -ASPI-1005 PO; -BENZ200C53 PO; -DULA1.5P SQ; +ERGO500093 PO; +INSU100C14 SQ; -LEVO-70 PO; +MIRA50TA PO; -MULT-1250 PO; +RANO500T6 PO; +REPA2TAB8 PO; +TIRZ7.5P SQ
[2023-08-13] MEDS ORDERED: 0.9%NACL 1000ML 1,000 ML IV ONE ×2 (07:35→09:44)
[2023-08-13] MEDS ORDERED: IOHEXOL 350 MG/ML 100ML INFUS..BTL IV ONE (10:53)
[2023-08-13] MEDS ORDERED: MIDAZOLAM HCL 1 MG/ML 2ML VIAL ONE ×2 (10:53→11:03)
[2023-08-13] MEDS ORDERED: HEPARIN 10,000 UNIT/10ML (1,000 UNIT/ML) VIAL ONE (10:53)
[2023-08-13] MEDS ORDERED: LIDOCAINE HCL 400MG/20ML VIAL ONE (10:53)
[2023-08-13] MEDS ORDERED: IOHEXOL-350 50ML VIAL IV ONE (10:53)
[2023-08-13] MEDS ORDERED: MEPERIDINE-PF 25 MG/ML SYG ONE ×2 (10:53→11:03)
[2023-08-13] MEDS ORDERED: NICARDIPINE 25MG INJ IV ONE (10:54)
[2023-08-13] MEDS ORDERED: 0.9%NACL 1000ML 1,000 ML IV SCH (12:00)
== END 2023-08-13 15:35 | disposition home or self-care (01) ==
LOC: DAH 07:01
PROVIDERS: ATTEND Internal Medicine Cardiovascular Disease
DX: I25.118 Atherosclerotic heart disease of native coronary artery with other forms of angina pectoris (principal); I10 Essential (primary) hypertension; E78.5 Hyperlipidemia, unspecified; E11.9 Type 2 diabetes mellitus without complications; E66.9 Obesity, unspecified; F41.9 Anxiety disorder, unspecified; M79.7 Fibromyalgia; G47.33 Obstructive sleep apnea (adult) (pediatric); Z88.1 Allergy status to other antibiotic agents; Z88.5 Allergy status to narcotic agent; Z79.01 Long term (current) use of anticoagulants; Z79.899 Other long term (current) drug therapy
CPT/HCPCS: 80048; 83880; 85025; 85610; 85730; 81001; 36415; 71045; 93005; 93458; 82948 ×2; C1769; A4649; C1894; Q9965; J3490 ×2; J7030 ×2; J1644 ×3; J2250 ×2; J2175 ×2; Q9967; A4215; A4335; A4222; A4221; A4663; A4216; A4606; A4520; A4223 ×3; 99156; 99157

== ENCOUNTER → 2024-08-14 | Outpatient (CLI) | payer OTHER ==
[~2024-08-14] MED LIST changes: -ROSU20TA73 PO; +ROSU20TA98 PO
--- NOTE | 2024-08-14 13:06 | HMCIMG ---
US CAROTID DUPLEX REASON: other symptoms involving circulatory and respiratory TECHNIQUE: Exam was performed using spectral analysis and color flow imaging. FINDINGS: Color flow Doppler ultrasound shows mild plaque in the distal right common carotid artery without focal narrowing. Bifurcations appear clear. There is no anatomic evidence of significant focal narrowing. Flow velocities and velocity ratios appear normal throughout. There is antegrade flow in both vertebral arteries. RIGHT CAROTID: CCA: 82 cm/sec ICA: 97 cm/sec Ratio: ICA/CCA: 1.2 ECA: 81 cm/sec Vertebral artery: 43 cm/sec LEFT CAROTID: CCA: 74 cm/sec ICA: 95 cm/sec Ratio: ICA/CCA: 1.3 ECA: 87 cm/sec Vertebral artery: 48 cm/sec IMPRESSION: Normal bilateral carotid Doppler ultrasound.
== END | disposition home or self-care (01) ==
LOC: RAH 11:10
PROVIDERS: ATTEND Internal Medicine Cardiovascular Disease
DX: I65.21 Occlusion and stenosis of right carotid artery (principal); R09.89 Other specified symptoms and signs involving the circulatory and respiratory systems
CPT/HCPCS: 93880

== ENCOUNTER 2024-08-24 12:37 | Emergency (ER) | payer OTHER ==
[~2024-08-24] VITALS: Ht 160 cm; Wt 68.0 kg
--- NOTE | 2024-08-24 12:46 | ERN ---
ED Note History of Present Illness Stated Complaint: MULTIPLE COMPLAINTS Time Seen by MD: 12:39 Dictation: PATIENT IS A 73-YEAR-OLD FEMALE COMING IN TODAY WITH FLU-LIKE SYMPTOMS INCLUDING CLEAR RUNNY NOSE DRY COUGH FOR THE LAST TWO DAYS. SHE STATES SHE FELL FELT WARM HOWEVER DOES NOT HAVE A THERMOMETER. SHE STATES SHE HAS ALSO HAD CHEST PAIN TO HER RIGHT ANTERIOR CHEST WORSE WITH COUGH FOR TWO DAYS TO STATES SHE HAS A HISTORY DIABETES, HYPERTENSION, STENTS. Allergies: Coded Allergies: Sulfa (Sulfonamide Antibiotics) (Verified Allergy, Unknown, 03/26/19) amoxicillin (Unverified Allergy, Unknown, 08/18/20) clavulanic acid (Unverified Allergy, Unknown, 08/18/20) lidocaine (Unverified Allergy, Unknown, 08/09/23) Home Meds Active Scripts Ibuprofen (Ibuprofen) 600 Mg Tablet, 600 MG PO Q6H PRN for PAIN, #30 TAB Prov:ERNESTO WISDOM SLICER MACHINE OPERATOR 08/24/24 Methylprednisolone (Medrol) 4 Mg Tab.ds.pk, 1 TAB PO AD for 6 Days, #21 TAB 0 Refills 6 on day 1 then reduce by one tablet daily until gone Prov:ERNESTO WISDOM SLICER MACHINE OPERATOR 08/24/24 Nitroglycerin (Nitrostat/Nitroquick) 0.4 Mg Sltb, 0.4 MG SL AD, #20 TAB.SL If you develop chest pain take 1 tablet sublingual every 5 minutes as needed no more than 3 pills Prov:SUZAN ROSSI MD 01/15/23 Reported Medications Sertraline HCl (Sertraline HCl) 100 Mg Tablet, 100 MG PO BID, TAB 08/09/23 Repaglinide (Repaglinide) 2 Mg Tablet, 2 MG PO BID, TAB 08/09/23 Insulin Lispro (Humalog) 100 Unit/Ml Cartridge, 5 UNITS SQ AM, CARTRIDGE 08/09/23 Tirzepatide (Mounjaro) 7.5 Mg/0.5 Ml Pen.injctr, 7.5 MG SQ QWEEK 08/09/23 Ranolazine (Ranolazine ER) 500 Mg Tab.er.12h, 500 MG PO BID, TAB 08/09/23 Mirabegron (Myrbetriq) 50 Mg Tab.er.24h, 50 MG PO AM, TAB 1/11/24 Ergocalciferol (Vitamin D2) (Vitamin D2) 1,250 Mcg (08895 Unit) Capsule, 1250 MCG PO QWEEK, CAP 08/09/23 Acetaminophen with Codeine (Acetaminophen-Cod #3 Tablet) 300 Mg-30 Mg Tablet, 1 EACH PO Q4HPRN PRN for PAIN, TAB 08/09/23 Insulin Degludec (Tresiba) 100 Unit/1 Ml Vial, SQ DAILY, VIAL 11/10/22 Famotidine (Famotidine) 40 Mg Tablet, 40 MG PO HS, TAB 11/10/22 Empagliflozin (Jardiance) 25 Mg Tablet, 25 MG PO DAILY, TAB 11/10/22 Docusate Sodium (Docusate Sodium) 100 Mg Capsule, 100 MG PO BID, CAP 11/10/22 Ondansetron HCl (Ondansetron HCl) 4 Mg Tablet, 4 MG PO Q6HPRN PRN for NAUSEA/VOMITING, TAB 11/10/22 Rosuvastatin Calcium (Rosuvastatin Calcium) 20 Mg Tablet, 20 MG PO DAILY, TAB 11/10/22 Losartan Potassium (Losartan Potassium) 50 Mg Tablet, 50 MG PO DAILY, TAB 11/10/22 Diltiazem HCl (Diltiazem ER) 240 Mg Capsule.er, 240 MG PO HS, CAP 01/25/21 Pantoprazole Sodium (Pantoprazole Sodium) 40 Mg Tablet.dr, 40 MG PO AM, TAB 08/18/20 Metformin HCl (Metformin HCl) 1,000 Mg Tablet, 1000 MG PO BID, TAB 08/18/20 Past Medical History Past Medical History: CAD, Diabetes-Type II, Hypertension Surgical History: None Surgical History Other: HERNIA Social History: Negative, Lives with family History: Not Applicable RN Note Reviewed/Agreed w/PFSH: Yes Review of System Dictation CONSTITUTIONAL: NEGATIVE EXCEPT FOR HPI GB W HEAD/FACE: NEGATIVE EXCEPT FOR HPI EENT: NEGATIVE EXCEPT FOR HPI SORE THROAT RESPIRATORY: NEGATIVE EXCEPT FOR HPI CHEST PAIN/COUGH GASTROINTESTINAL/ABDOMINAL: NEGATIVE EXCEPT FOR HPI GENITOURINARY: NEGATIVE EXCEPT FOR HPI MUSCULOSKELETAL: NEGATIVE EXCEPT FOR HPI INTEGUMENTARY: NEGATIVE EXCEPT FOR HPI NEUROLOGICAL/PSYCH: NEGATIVE EXCEPT FOR HPI HEMATOLOGIC/LYMPHATIC: NEGATIVE EXCEPT FOR HPI ALL SYSTEMS NEGATIVE, EXCEPT NOTED ABOVE. 13 POINT REVIEW OF SYSTEMS ASSESSED AND ALL NEGATIVE EXCEPT FOR ABOVE. Initial Vital Sign VS Vital Signs Date Time Temp Pulse Resp B/P (MAP) Pulse Ox O2 Delivery O2 Flow Rate FiO2 08/24/24 12:48 97.5 80 16 136/98 98 08/24/24 15:54 Room Air* 0 21 Physical Exam Dictation VITAL SIGNS REVIEWED GENERAL APPEARANCE: ALERT, ORIENTED X 3, MILD ACUTE DISTRESS, WELL DEVELOPED, NOURISHED. HEAD AND FACE: NON-TRAUMATIC. EYES: PERRL, PINK CONJUNCTIVAS, EYELID NO TRAUMA, ANTERIOR CHAMBER WITH ARCUS SENILIS. EARS: PINNAS INTACT AND NO SIGNS OF TRAUMA OR ERYTHEMA EAR CANALS CLEAR AND NO DISCHARGE TM NO ERYTHEMA NOSE: NO DISCHARGE, NO BLEEDING. OROPHARYNX: MOUTH NORMAL, TONGUE PINK, PHARYNX CLEAR,NO ERYTHEMA, TONSILS NO EXUDATES, NO ABSCESSES NOTED, MUCOUS MEMBRANE MOIST NECK: SUPPLE, NON-TENDER, NO THYROMEGALY, NO MASSES, NO JVD, NO BRUITS BREAST:DEFERRED CHEST:NO TENDERNESS, NO CREPITUS, NO PARADOXICAL MOVEMENT, NO RETRACTIONS LUNGS:CLEAR, WELL-VENTILATED, SYMMETRIC, NO RALES, NO WHEEZING, NO RHONCHI, NO STRIDOR, GOOD BREATH SOUNDS BILATERALLY HEART: REGULAR RATE, REGULAR RHYTHM, NO MURMUR, NO GALLOPS VASCULAR: NO PERIPHERAL EDEMA, ABDOMEN: SOFT, POSITIVE BOWEL SOUNDS, NONDISTENDED, NO GUARDING, NONTENDER, NO REBOUND, NO MASSES NO HEPATOMEGALY, NO SPLENOMEGALY, NO SAEZ'S SIGN, NO HERNIAS. RECTAL: DEFERRED GENITAL: DEFERRED NEUROLOGICAL: NORMAL SPEECH, MOTOR FUNCTION INTACT, SENSORY FUNCTION INTACT MUSCULOSKELETAL: NECK NONTENDER, FULL RANGE OF MOTION, BACK NONTENDER, FULL RANGE OF MOTION, EXTREMITIES: NONTENDER, FULL RANGE OF MOTION SKIN: COLOR PINK, DRY, NO TURGOR, NO RASH, NO LACERATIONS, NO ABRASIONS, NO CONTUSIONS. LYMPHATIC: DEFERRED Results (Laboratory/Radiology) Laboratory/Radiology Laboratory Tests Test 08/24/24 12:59 08/24/24 13:47 White Blood Count 7.2 K/uL (4.8-10.8) Red Blood Count 5.13 MIL/uL (4.00-5.50) Hemoglobin 13.6 g/dL (12.0-16.0) Hematocrit 42.5 % (36-48) Mean Corpuscular Volume 82.8 fL (79-99) Mean Corpuscular Hemoglobin 26.5 pg (27.0-33.0) L Mean Corpuscular Hemoglobin Concent 32.0 g/dL (32.0-36.0) Red Cell Distribution Width 15.2 % (11.0-15.5) Platelet Count 242 K/uL (130-400) Mean Platelet Volume 10.7 fL (7.5-10.5) H Immature Granulocyte % (Auto) 0.3 % (0-1) Neutrophils (%) (Auto) 56.6 % (40.0-77.0) Lymphocytes (%) (Auto) 32.7 % (21.0-51.0) Monocytes (%) (Auto) 8.6 % (3.0-13.0) Eosinophils (%) (Auto) 1.2 % (0.0-8.0) Basophils (%) (Auto) 0.6 % (0.0-5.0) Neutrophils # (Auto) 4.1 K/uL (1.8-7.7) Lymphocytes # (Auto) 2.4 K/uL (1.0-4.8) Monocytes # (Auto) 0.6 K/uL (0.1-1.0) Eosinophils # (Auto) 0.09 K/uL (0.00-0.70) Basophils # (Auto) 0.04 K/uL (0.00-0.20) Absolute Immature Granulocyte (auto 0.02 K/uL (0-1) Nucleated Red Blood Cells 0.0 % (0.0-0.19) Sodium Level 138 mmol/L (136-145) Potassium Level 4.3 mmol/L (3.5-5.1) Chloride Level 100 mmol/L (101-111) L Carbon Dioxide Level 31 mmol/L (21-32) Blood Urea Nitrogen 15 mg/dL (7-18) Creatinine 0.8 mg/dL (0.5-1.0) Glomerular Filtration Rate Calc 78 mL/min (>90) Random Glucose 135 mg/dL (70-105) H Total Calcium 9.4 mg/dL (8.5-10.1) Troponin I High Sensitivity 5 ng/L (4-50) Influenza Type A Antigen Negative For Type A Influenza Type B Antigen Negative For Type B SARS-CoV-2 Antigen (Rapid) PRESUMPTIVE NEGATIVE Group A Streptococcus Rapid negative (NEGATIVE) Labs Reviewed?: Yes EKG Comment: EKG sinus rhythm/heart rat /nonspecific changes in leads V four through six 8 ED Course ED Course Orders Procedure Category Date Status Time Rapid (Group A Strep) LAB 08/24/24 Complete 12:43 Covid19 (Sars Antigen LAB 08/24/24 Complete Rapid) 12:43 Influenza Type A & B, LAB 08/24/24 Complete Rapid 12:43 Cbc With Differential LAB 08/24/24 Complete 12:43 Troponin I High LAB 08/24/24 Complete Sensitivity 12:43 12 Lead Ekg Tracing- EKG 08/24/24 Complete Technical 12:43 Chest 1vw RAD 08/24/24 Resulted 12:43 Basic Metabolic Panel LAB 08/24/24 Complete 12:43 Dexamethasone 4mg/Ml PHA 08/24/24 Complete 1ml Vial (Dexametha 16:30 Current Medications Medications (Trade) Dose Ordered Sig/Lana Route PRN Reason Start Time Stop Time Status Last Admin Dose Admin Dexamethasone Sodium Phosphate (dexaMETHasone 4MG/ML 1ML VIAL) 8 mg ONCE ONCE IM 08/24/24 16:30 08/24/24 16:31 DC 08/24/24 16:31 Vital Signs Date Time Temp Pulse Resp B/P (MAP) Pulse Ox O2 Delivery O2 Flow Rate FiO2 08/24/24 15:54 98.1 80 16 135/95 98 Room Air* 0 21 08/24/24 12:48 97.5 80 16 136/98 98 SIXTEEN 50 PATIENT STATES SHE FEELS BETTER AFTER SHOT OF DECADRON AND TYLENOL. WE WILL BE DISCHARGED HOME WITH COSTOCHONDRITIS TOLD TO SEE HER PRIMARY CARE DOCTOR HEART Score Response (Comments) Value EKG: Repolarization changes 1 Age: > 65yrs (+2) 2 Risk Factors: 1-2 risk factors (+1) 1 Initial Troponin: Normal limit (0) 0 HEART Score Risk: Mod Risk for MACE (4-6) Total 4 Medical Decision Making MDM MDM: DIFFERENTIAL DIAGNOSIS: ACS/AMI/PNEUMONIA/BRONCHITIS/COSTOCHONDRITIS/ELECTROLYTE IMBALANCE/DEHYDRATION/SARS-INFLUENZA RATIONALE: TESTS CONSIDERED AND ORDERED SECONDARY TO SHARED DECISION MAKING INCLUDE: EKG/LABS/RADIOLOGY PREVIOUS OUTSIDE RECORDS REVIEWED: OLD ER VISITS. RISK OF COMPLICATION AND/OR MORBIDITY OR MORTALITY OF PATIENT MANAGEMENT: NONE MEDICATIONS-PER MEDICATION RECONCILIATION NEED FOR HOSPITALIZATION: PATIENT DOES NOT MEET CRITERIA FOR HOSPITALIZATION. NO NEED FOR EMERGENCY MAJOR/MINOR SURGERY: NO THERE ARE NO SOCIAL CONCERNS WITH THIS PATIENT. PRESCRIPTION DRUG MANAGEMENT MEDROL DOSEPAK/IBUPROFEN PRESCRIPTIONS WILL INCLUDE SYMPTOMATIC CARE PATIENT'S PRIOR EXTERNAL MEDICAL RECORDS FROM OTHER ER VISITS WERE REVIEWED BY ME INDICATED. PRIOR TESTING AND RESULTS FROM PREVIOUS VISITS WERE REVIEWED. PRIOR TESTS WERE TAKEN INTO ACCOUNT WITH MEDICAL DECISION MAKING AND RESOURCE UTILIZATION, INDEPENDENT HISTORIAN/HISTORIANS WERE USED TO OBTAIN COMPLETE MEDICAL HISTORY. I INDEPENDENTLY INTERPRETED THE TEST THAT WERE PERFORMED, RESULTS WERE REVIEWED BY ME AND CONSIDERED FINDINGS ON RADIOLOGY IF ORDERED. MEDICAL MANAGEMENT AND EXAMINATION INTERPRETATION DISCUSSIONS WERE HAD BY ME WITH OTHER QUALIFIED HEALTHCARE PROFESSIONALS INDICATED FOR THE PATIENT'S CARE. DX & DISP Disposition: Discharge Departure Impression: Primary Impression: Acute costochondritis Condition: Stable Scripts Ibuprofen (Ibuprofen) 600 Mg Tablet 600 MG PO Q6H PRN for PAIN, #30 TAB Prov: ERNESTO WISDOM SLICER MACHINE OPERATOR 08/24/24 Methylprednisolone (Medrol) 4 Mg Tab.ds.pk 1 TAB PO AD for 6 Days, #21 TAB 0 Refills 6 on day 1 then reduce by one tablet daily until gone Prov: ERNESTO WISDOM SLICER MACHINE OPERATOR 08/24/24 Additional Instructions: FOLLOW-UP WITH PRIMARY CARE PROVIDER IN 1 TO 2 DAYS. TAKE MEDICATIONS DIRECTED HERE IN THE EMERGENCY ROOM. OKAY TO CONTINUE HOME MEDICATIONS UNLESS OTHERWISE DISCUSSED DURING YOUR VISIT IN THE EMERGENCY ROOM TODAY. RETURN TO YOUR NEAREST EMERGENCY ROOM IF SYMPTOMS WORSEN OR IF THERE IS NO IMPROVEMENT. CALL 911 IF YOU NEED IMMEDIATE ASSISTANCE. TAKE TYLENOL OR MOTRIN OVER-THE- COUNTER NEEDED AND IF NO CONTRAINDICATIONS ARE PRESENT. INCREASE ORAL HYDRATION. A WOUND CULTURE OR URINE CULTURE WAS ORDERED HERE IN THE EMERGENCY ROOM DEPARTMENT PLEASE FOLLOW-UP WITH PRIMARY CARE PROVIDER AND ADVISE THEM TO GET REPEAT PORTS FROM OUR FACILITY. IF YOU HAD ANY ARIANNA WRAP/SPLINTS THAT WERE APPLIED HERE, PLEASE DO NOT REMOVE THEM UNTIL YOU SEE YOUR PRIMARY CARE OR SPECIALTY. TAKE IBUPROFEN EVERY8 HOURS WITH FOOD FOR THE NEXT THREE DAYS. TAKE MEDROL DOSEPAK DIRECTED UNTIL GONE. , SEE YOUR PRIMARY CARE DOCTOR IN 1-2 DAYS. Referrals: AUDIE DIAZ MD (PCP) Time of Disposition: 16:54 I have reviewed the case, and I agree with, Diagnosis and Plan I performed the substantive portion of the visit. I have reviewed and personally made and approve the management plan that is documented in the notes by myself or the ELAINE. I acknowledge full responsibility for the patient's management plan. ERNESTO WISDOM NP Aug 24, 2024 12:46 NANCY GOODMAN MD Aug 25, 2024 12:50
[2024-08-24 13:06] LABS: BASOPHILS # (AUTO) 0.04 K/uL (0.00-0.20); BASOPHILS % (AUTO) 0.6 % (0.0-5.0); EOSINOPHILS # (AUTO) 0.09 K/uL (0.00-0.70); EOSINOPHILS % (AUTO) 1.2 % (0.0-8.0); HEMATOCRIT 42.5 % (36-48); IMMATURE GRANULOCYTE ABSOLUTE 0.02 K/uL (0-1); LYMPHOCYTES # (AUTO) 2.4 K/uL (1.0-4.8); LYMPHOCYTES % (AUTO) 32.7 % (21.0-51.0); MEAN CORPUSCULAR HEMOGLOBIN 26.5 pg (27.0-33.0); MEAN CORPUSCULAR VOLUME 82.8 fL (79-99); MONOCYTES # (AUTO) 0.6 K/uL (0.1-1.0); MONOCYTES % (AUTO) 8.6 % (3.0-13.0); NEUTROPHILS # (AUTO) 4.1 K/uL (1.8-7.7); NEUTROPHILS % (AUTO) 56.6 % (40.0-77.0); PLATELET COUNT (AUTO) 242 K/uL (130-400); RED BLOOD CELL COUNT(AUTO) 5.13 MIL/uL (4.00-5.50); RED CELL DISTRIBUTION WIDTH 15.2 % (11.0-15.5); WHITE BLOOD COUNT (AUTO) 7.2 K/uL (4.8-10.8)
[2024-08-24 13:15] LABS: CREATININE 0.8 mg/dL (0.5-1.0); POTASSIUM 4.3 mmol/L (3.5-5.1)
[2024-08-24 15:54] VITALS: BP 135/95; PULSE 80; RESP 16; TEMP 98.1; O2SAT 98
[2024-08-24 16:18] LABS: RAPID GROUP A STREP negative (NEGATIVE)
[2024-08-24 16:21] LABS: COVID19 (SARS ANTIGEN RAPID) PRESUMPTIVE NEGATIVE (NEGATIVE)
[2024-08-24 16:22] LABS: INFLUENZA TYPE A Negative For Type A (NEGATIVE); INFLUENZA TYPE B Negative For Type B (NEGATIVE)
[2024-08-24] MEDS: dexaMETHasone SOD PHOSPHATE 4 MG/ML 1ML VIAL IM ONE (16:31)
[2024-08-24] MEDS ORDERED: IBUP-2070 PO (16:55)
[2024-08-24] MEDS ORDERED: METH4TAB3 PO (16:55)
--- NOTE | 2024-08-24 16:57 | EKG ---
[facility] Test Date: 2024-08-24 Test Time: 15:01:50 Pat Name: TIERRA WILDE Department: ED Room: Gender: F Mica Washer Gluer: [id number] : 1950 Requested By: ERNESTO WISDOM Order Number: [id number] Reading MD: Tamiko Haider Measurements Intervals [place] Rate: 72 P: 30 MD: 155 QRS: -11 QRSD: 97 T: 29 QT: 410 QTc: 449 Interpretive Statements Sinus rhythm Compared to ECG 08/09/2023 10:46:34 Prolonged QT interval no longer present Electronically Signed On 08-25-2024 16:08:15 SCADA TECHNICIAN by Tamiko Haider Please click the below link to view image of tracing.
--- NOTE | 2024-08-25 08:48 | HMCIMG ---
CHEST 1VW REASON: CHEST PAIN/SOB TWO DAYS COMPARISON: 08/09/2023 FINDINGS: Single view of the chest was obtained. Lungs are clear. Heart size is normal. There is no pulmonary vascular congestion. Mediastinum and bony thorax appear unremarkable. IMPRESSION: 1. Normal single view chest x-ray.
== END 2024-08-24 17:03 | disposition home or self-care (01) ==
LOC: EDH 12:37
DX: M94.0 Chondrocostal junction syndrome [Tietze] (principal); I25.10 Atherosclerotic heart disease of native coronary artery without angina pectoris; E11.9 Type 2 diabetes mellitus without complications; I10 Essential (primary) hypertension; Z79.4 Long term (current) use of insulin; Z79.84 Long term (current) use of oral hypoglycemic drugs; Z79.85 Long-term (current) use of injectable non-insulin antidiabetic drugs; Z79.899 Other long term (current) drug therapy; Z88.0 Allergy status to penicillin; Z88.2 Allergy status to sulfonamides; Z20.822 Contact with and (suspected) exposure to COVID-19
CPT/HCPCS: 99285; 71045; 87426; 84484; 80048; 85025; 87880; 87804 ×2; 36415; 96372; 93005; J1100

== ENCOUNTER 2024-10-12 15:20 | Emergency (ER) | payer OTHER ==
[~2024-10-12] VITALS: Ht 160 cm; Wt 68.0 kg
[~2024-10-12 15:20] MED LIST changes: +IBUP-2070 PO; +METH4TAB3 PO
--- NOTE | 2024-10-12 15:49 | ERN ---
General Chief Complaint: Stroke Symptoms Stated Complaint: RT FACIAL NUMBNESS Time Seen by MD: 15:23 Source: patient History of Present Illness Initial Comments Patient is a 74-year-old female coming in to be evaluated for right patient numbness and mild aphasia. Patient states that the symptoms began 15 minutes prior to arrival. Allergies: Coded Allergies: Sulfa (Sulfonamide Antibiotics) (Verified Allergy, Unknown, 03/26/19) amoxicillin (Unverified Allergy, Unknown, 08/18/20) clavulanic acid (Unverified Allergy, Unknown, 08/18/20) lidocaine (Unverified Allergy, Unknown, 08/09/23) Home Meds Active Scripts Ibuprofen (Ibuprofen) 600 Mg Tablet, 600 MG PO Q6H PRN for PAIN, #30 TAB Prov:ERNESTO WISDOM MIXING TANK OPERATOR 08/24/24 Methylprednisolone (Medrol) 4 Mg Tab.ds.pk, 1 TAB PO AD for 6 Days, #21 TAB 0 Refills 6 on day 1 then reduce by one tablet daily until gone Prov:ERNESTO WISDOM MIXING TANK OPERATOR 08/24/24 Nitroglycerin (Nitrostat/Nitroquick) 0.4 Mg Sltb, 0.4 MG SL AD, #20 TAB.SL If you develop chest pain take 1 tablet sublingual every 5 minutes as needed no more than 3 pills Prov:SUZAN ROSSI MD 01/15/23 Reported Medications Sertraline HCl (Sertraline HCl) 100 Mg Tablet, 100 MG PO BID, TAB 08/09/23 Repaglinide (Repaglinide) 2 Mg Tablet, 2 MG PO BID, TAB 08/09/23 Insulin Lispro (Humalog) 100 Unit/Ml Cartridge, 5 UNITS SQ AM, CARTRIDGE 08/09/23 Tirzepatide (Mounjaro) 7.5 Mg/0.5 Ml Pen.injctr, 7.5 MG SQ QWEEK 08/09/23 Ranolazine (Ranolazine ER) 500 Mg Tab.er.12h, 500 MG PO BID, TAB 08/09/23 Mirabegron (Myrbetriq) 50 Mg Tab.er.24h, 50 MG PO AM, TAB 08/09/23 Ergocalciferol (Vitamin D2) (Vitamin D2) 1,250 Mcg (57805 Unit) Capsule, 1250 MCG PO QWEEK, CAP 08/09/23 Acetaminophen with Codeine (Acetaminophen-Cod #3 Tablet) 300 Mg-30 Mg Tablet, 1 EACH PO Q4HPRN PRN for PAIN, TAB 08/09/23 Insulin Degludec (Tresiba) 100 Unit/1 Ml Vial, SQ DAILY, VIAL 11/10/22 Famotidine (Famotidine) 40 Mg Tablet, 40 MG PO HS, TAB 11/10/22 Empagliflozin (Jardiance) 25 Mg Tablet, 25 MG PO DAILY, TAB 11/10/22 Docusate Sodium (Docusate Sodium) 100 Mg Capsule, 100 MG PO BID, CAP 11/10/22 Ondansetron HCl (Ondansetron HCl) 4 Mg Tablet, 4 MG PO Q6HPRN PRN for NAUSEA/VOMITING, TAB 11/10/22 Rosuvastatin Calcium (Rosuvastatin Calcium) 20 Mg Tablet, 20 MG PO DAILY, TAB 11/10/22 Losartan Potassium (Losartan Potassium) 50 Mg Tablet, 50 MG PO DAILY, TAB 11/10/22 Diltiazem HCl (Diltiazem ER) 240 Mg Capsule.er, 240 MG PO HS, CAP 01/25/21 Pantoprazole Sodium (Pantoprazole Sodium) 40 Mg Tablet.dr, 40 MG PO AM, TAB 08/18/20 Metformin HCl (Metformin HCl) 1,000 Mg Tablet, 1000 MG PO BID, TAB 08/18/20 Past Medical History Past Medical History: Diabetes-Type II, High Cholesterol, Hypertension Past Surgical History: Unknown Surgical History Other: HERNIA Social History Social History: Negative, Lives with family Female( History) History: Not Applicable ROS Dictation CONSTITUTIONAL: No chills, no fever, no weakness, no diaphoresis, no malaise. HEAD/FACE: No signs of trauma. EENT: No eye pain, no blurred vision, no tearing, no double vision, no ear pain, no ear discharge, no nose pain, no nasal congestion, no throat pain, no throat swelling, no mouth pain. RESPIRATORY: No cough, no orthopnea, no SOB, no stridor, no wheezing. CARDIOVASCULAR: No chest pain, no edema, no palpitations, no syncope. GASTROINTESTINAL/ABDOMINAL: No abdominal pain, no constipation, no diarrhea, no nausea, no vomiting. GENITOURINARY: No abnormal discharge, no dysuria, no frequent urination, no hematuria. No complaints of pain in the genitals. MUSCULOSKELETAL: No back pain, no gout, no joint pain, no joint swelling, no muscle pain, no muscle stiffness, no neck pain. INTEGUMENTARY: No change in color, no change in hair/nails, no dryness, no lesion, no lumps, no rash. NEUROLOGICAL/PSYCH: No anxiety, not depressed, no emotional problem, no headache, no numbness, no pre-existing deficit, no history of seizures, no tremors, no weakness. HEMATOLOGIC/LYMPHATIC: Not anemic, no history of blood clots, no apparent bleeding, no bruising, glands not swollen. All Systems Negative, Except as Noted. Physical Exam Physical Exam Dictation VITAL SIGNS: Reviewed. GENERAL APPEARANCE: Alert, oriented x3, no acute distress, obese. HEAD AND FACE: Non-traumatic. EYES: PERRL, pink conjunctivas, eyelid no trauma, anterior chamber clear. EARS: Pinnas intact and no signs of trauma or erythema. Ear canals clear and no discharge. TMs no erythema. NOSE: No discharge, no bleeding. OROPHARYNX: Mouth normal, teeth no caries, tongue pink. Pharynx clear, no erythema. Tonsils no exudates, no abscesses noted. Mucous membrane moist. NECK: Supple, non-tender, no thyromegaly, no masses, no JVD, no bruits. BREAST: Deferred. CHEST: No tenderness, no crepitus, no paradoxical movement, no retractions. LUNGS: Clear, well-ventilated, symmetric, no rales, no wheezing, no rhonchi, no stridor, good breath sounds bilaterally. HEART: Regular rate, regular rhythm, no murmur, no gallops. VASCULAR: No peripheral edema. ABDOMEN: Soft, positive bowel sounds, nondistended, no guarding, nontender, no rebound, no masses no hepatomegaly, no splenomegaly, no Mckinnon's sign, no hernias. RECTAL: Deferred. GENITAL: Deferred. NEUROLOGICAL: Change in speech, gross motor function intact, gross sensory f unction decreased. MUSCULOSKELETAL: Neck nontender, full range of motion, back nontender, full range of motion. EXTREMITIES: Nontender, full range of motion. SKIN: Color pink, dry, no turgor, no rash, no lacerations, no abrasions, no contusions. LYMPHATICS: Deferred. NIH STROKE SCALE: NIH STROKE SCALE Response (Comments) Value Level of Consciousness Alert 0 Ask patient month and their age Answers both correct 0 Command to open eyes, make fist and let go Obeys both correct 0 Best gaze (horizontal eye movement) Normal 0 Visual Field Testing No Visual Field Loss 0 Facial Paresis Minor Paralysis 1 Motor Function - Left Arm Normal 0 Motor Function - Right Arm Normal 0 Motor Function - Left Leg Normal 0 Motor Function - Right Leg Normal 0 Limb Ataxia No Ataxia 0 Sensory-pin prick to arms, legs, trunk and face Mild to Moderate Decrease 1 Best Language (describe picture, name items and read) Mild to Mod. Aphasia 1 Dysarthria (read several words) Normal Articulation 0 Extinction and Inattention Normal 0 Total 3 Results Laboratory and Microbiology Lab and Micro Result Laboratory Tests Test 10/12/24 15:28 10/12/24 15:41 Whole Blood Glucose 79 MG/DL (70-110) White Blood Count 9.0 K/uL (4.8-10.8) Red Blood Count 5.13 MIL/uL (4.00-5.50) Hemoglobin 13.5 g/dL (12.0-16.0) Hematocrit 42.3 % (36-48) Mean Corpuscular Volume 82.5 fL (79-99) Mean Corpuscular Hemoglobin 26.3 pg (27.0-33.0) L Mean Corpuscular Hemoglobin Concent 31.9 g/dL (32.0-36.0) L Red Cell Distribution Width 14.1 % (11.0-15.5) Platelet Count 251 K/uL (130-400) Mean Platelet Volume 10.9 fL (7.5-10.5) H Immature Granulocyte % (Auto) 0.2 % (0-1) Neutrophils (%) (Auto) 54.0 % (40.0-77.0) Lymphocytes (%) (Auto) 36.5 % (21.0-51.0) Monocytes (%) (Auto) 6.4 % (3.0-13.0) Eosinophils (%) (Auto) 2.2 % (0.0-8.0) Basophils (%) (Auto) 0.7 % (0.0-5.0) Neutrophils # (Auto) 4.8 K/uL (1.8-7.7) Lymphocytes # (Auto) 3.3 K/uL (1.0-4.8) Monocytes # (Auto) 0.6 K/uL (0.1-1.0) Eosinophils # (Auto) 0.20 K/uL (0.00-0.70) Basophils # (Auto) 0.06 K/uL (0.00-0.20) Absolute Immature Granulocyte (auto 0.02 K/uL (0-1) Nucleated Red Blood Cells 0.0 % (0.0-0.19) Prothrombin Time 10.5 SEC (9.6-11.6) Prothromb Time International Ratio 0.99 (0.85-1.15) Activated Partial Thromboplast Time 27.2 SEC (26.3-35.5) Sodium Level 135 mmol/L (136-145) L Potassium Level 3.6 mmol/L (3.5-5.1) Chloride Level 98 mmol/L (101-111) L Carbon Dioxide Level 30 mmol/L (21-32) Blood Urea Nitrogen 13 mg/dL (7-18) Creatinine 0.9 mg/dL (0.5-1.0) Glomerular Filtration Rate Calc 68 mL/min (>90) Random Glucose 77 mg/dL (70-105) Total Calcium 8.9 mg/dL (8.5-10.1) Total Creatine Kinase 39 U/L (21-232) Troponin I High Sensitivity 5 ng/L (4-50) B-Type Natriuretic Peptide 34 pg/mL (0-100) LDL Cholesterol 129 mg/dL (0-99) H Labs Reviewed?: Yes EKG/XRAY/US/CT/MRI EKG Comment 10/12/2024 TIME 1545 VENTRICULAR RATE 79 SINUS RHYTHM NV [address] WAVE ELEVATION OR DEPRESSION X-RAY Comment [facility] [address] [place] [id number] IMAGING REPORT Signed PATIENT: TIERRA WILDE MR#: [id number] : 1950 SEX: F AGE: 74 LOCATION: [facility] ORDER 152 STATUS: REG ER REPORT#: [id number] SERVICE 152 REASON: stroke ORDERING PHYSICIAN: JUNO WELDON MD PROCEDURE: CXR1VW - CHEST 1VW CHEST 1VW CLINICAL HISTORY: stroke COMPARISON: 08/24/2024 TECHNIQUE: Single view of the chest was obtained. FINDINGS: Lungs are clear. The cardiac size and mediastinum are unremarkable. The bony structures are stable. IMPRESSION: No acute cardiopulmonary process identified. DICTATED BY: LORAINE RENNER DO DATE: 10/12/241702 ELECTRONICALLY SIGNED BY: OLRAINE RENNER DO DATE: 10/12/241706 CT Scan Comment [facility] [address] [place] [address] IMAGING REPORT Signed PATIENT: TIERRA WILDE MR#: [id number] : 1950 SEX: F AGE: 74 LOCATION: [facility] ORDER 26 STATUS: REG ER REPORT#: [id number] SERVICE 152 REASON: STROKE SYMPTOMS ORDERING PHYSICIAN: JUNO WELDON MD PROCEDURE: HEAD WO - CT HEAD/BRAIN W/O CONTRAST Exam Type: CT HEAD/BRAIN W/O CONTRAST Clinical Information: STROKE SYMPTOMS Comparison: None CT Dose Index (CTDI): 57.33 mGy Dose Length Product (DLP): 956.79 total mGy-cm Findings: The examination shows atrophy. There is low attenuation throughout the periventricular white matter locations, consistent with chronic small vessel ischemic changes. No acute intra- or extra-axial fluid collections are seen. There is no evidence of acute or chronic hemorrhage. There is no mass effect or shift of midline structures. There are no areas to suggest acute infarct. The skull windows show no significant abnormalities. IMPRESSION: 1. ATROPHY AND CHRONIC SMALL VESSEL ISCHEMIC CHANGES. This study was performed using dose reduction techniques to include automated exposure control and/or adjustment of the mA and/or kV according to patient size. DICTATED BY: WINTER JANSEN MD DATE: 10/12/241555 ELECTRONICALLY SIGNED BY: WINTER JANSEN MD DATE: 10/12/24 1602 MDM MDM: DIFFERENTIAL DIAGNOSIS: CVA, TIA, ALLERGIC REACTION, RATIONALE: TESTS CONSIDERED AND ORDERED SECONDARY TO SHARED DECISION MAKING INCLUDE: LABS, ECG AND RADIOLOGY PREVIOUS OUTSIDE RECORDS REVIEWED: OLD ER VISITS. RISK OF COMPLICATION AND/OR MORBIDITY OR MORTALITY OF PATIENT MANAGEMENT: NONE MEDICATIONS-PER MEDICATION RECONCILIATION NEED FOR HOSPITALIZATION: PATIENT DOES MEET CRITERIA FOR HOSPITALIZATION. NEED FOR EMERGENCY MAJOR/MINOR SURGERY: NO THERE ARE NO SOCIAL CONCERNS WITH THIS PATIENT. PRESCRIPTION DRUG MANAGEMENT PRESCRIPTIONS WILL INCLUDE SYMPTOMATIC CARE PATIENT'S PRIOR EXTERNAL MEDICAL RECORDS FROM OTHER ER VISITS WERE REVIEWED BY ME INDICATED. PRIOR TESTING AND RESULTS FROM PREVIOUS VISITS WERE REVIEWED. PRIOR TESTS WERE TAKEN INTO ACCOUNT WITH MEDICAL DECISION MAKING AND RESOURCE UTILIZATION, INDEPENDENT HISTORIAN/HISTORIANS WERE USED TO OBTAIN COMPLETE MEDICAL HISTORY. I INDEPENDENTLY INTERPRETED THE TEST THAT WERE PERFORMED, RESULTS WERE REVIEWED BY ME AND CONSIDERED FINDINGS ON RADIOLOGY IF ORDERED. MEDICAL MANAGEMENT AND EXAMINATION INTERPRETATION DISCUSSIONS WERE HAD BY ME WITH OTHER QUALIFIED HEALTHCARE PROFESSIONALS INDICATED FOR THE PATIENT'S CARE. PATIENT IS A 74-YEAR-OLD FEMALE COMING IN TO BE EVALUATED FOR RIGHT FACIAL AND RIGHT UPPER EXTREMITY NUMBNESS. PER FAMILY MEMBER SYMPTOMS BEGAN 15 MINUTES PRIOR TO ARRIVAL. THROUGHOUT ER VISIT PATIENT HAS BEEN STABLE PATIENT WAS EVALUATED BY TELENEUROLOGIST AND DUE TO A CHRONIC HEMATURIA PATIENT DOES NOT MEET CRITERIA FOR TNK. FURTHER EVALUATION PATIENT DOES STATE THAT SHE FEELS TINGLING AROUND BILATERAL FACES AROUND HER LIP AND FEELS IF HER RIGHT ARM IS SWOLLEN SUGGESTIVE OF ALLERGIC REACTION. CT DID NOT DISCLOSE ACUTE FINDINGS. PATIENT WILL BE ADMITTED UNDER THE CARE OF [facility] FOR ONGOING EVALUATION TO RULE OUT A TIA VERSUS CVA. ED Course Orders Procedure Category Date Status Time Ct Head/Brain W/O CT 10/12/24 Resulted Contrast 15:26 Cbc With Differential LAB 10/12/24 Complete 15:27 Prothrombin Time With LAB 10/12/24 Complete INR 15:27 Partial LAB 10/12/24 Complete Thromboplastin Time 15:27 Chest 1vw RAD 10/12/24 Resulted 15:27 12 Lead Ekg Tracing- EKG 10/12/24 Logged Technical 15:27 Creatine Kinase, Total LAB 10/12/24 Complete 15:27 Ldl Direct LAB 10/12/24 Complete 15:27 Troponin I High LAB 10/12/24 Complete Sensitivity 15:27 Urinalysis Profile LAB 10/12/24 Logged 15:27 B-Type Natriuretic LAB 10/12/24 Complete Peptide 15:27 Bedside Glucose CPOE 10/12/24 Transmitted Fingerstick 15:27 Basic Metabolic Panel LAB 10/12/24 Complete 15:27 Acetaminophen 500mg PHA 10/12/24 Complete Tab (Tylenol 500mg T 17:00 Aspirin 325mg Tab PHA 10/12/24 Complete (Aspirin 325mg Tab) 17:30 Current Medications Medications (Trade) Dose Ordered Sig/Lana Route PRN Reason Start Time Stop Time Status Last Admin Dose Admin Acetaminophen (TYLenol 500MG TAB) 1,000 mg ONCE ONCE PO 10/12/24 17:00 10/12/24 17:01 DC 10/12/24 16:58 Aspirin (Aspirin 325mg Tab) 325 mg ONCE ONCE PO 10/12/24 17:30 10/12/24 17:31 DC Vital Signs Date Time Temp Pulse Resp B/P (MAP) Pulse Ox O2 Delivery O2 Flow Rate FiO2 10/12/24 16:33 97.9 81 18 166/88 95 Room Air* 0 21 10/12/24 16:17 97.9 81 18 182/82 96 Room Air* 0 21 10/12/24 15:30 97.9 78 18 176/97 96 Room Air* 0 21 10/12/24 15:29 97.9 78 18 176/97 96 Room Air 0 Critical Care Note Comments CRITICAL CARE PROCEDURE NOTE AUTHORIZED AND PERFORMED BY: ME TOTAL CRITICAL CARE TIME: APPROXIMATELY 36 MINUTES DUE TO A HIGH PROBABILITY OF CLINICALLY SIGNIFICANT, LIFE THREATENING DETERIORATION, THE PATIENT REQUIRED MY HIGHEST LEVEL OF PREPAREDNESS TO INTERVENE EMERGENTLY AND I PERSONALLY SPENT THIS CRITICAL CARE TIME DIRECTLY AND PERSONALLY MANAGING THE PATIENT. THIS CRITICAL CARE TIME INCLUDED OBTAINING A HISTORY; EXAMINING THE PATIENT; PULSE OXIMETRY; ORDERING AND REVIEW OF STUDIES; ARRANGING URGENT TREATMENT WITH DEVELOPMENT OF A MANAGEMENT PLAN; EVALUATION OF PATIENT'S RESPONSE TO TREATMENT; FREQUENT REASSESSMENT; AND, DISCUSSIONS WITH OTHER PROVIDERS. THIS CRITICAL CARE TIME WAS PERFORMED TO ASSESS AND MANAGE THE HIGH PROBABILITY OF IMMINENT, LIFE-THREATENING DETERIORATION THAT COULD RESULT IN MULTI-ORGAN FAILURE. IT WAS EXCLUSIVE OF SEPARATELY BILLABLE PROCEDURES AND TREATING OTHER PATIENTS AND TEACHING TIME. PLEASE SEE MDM SECTION AND THE REST OF THE NOTE FOR FURTHER INFORMATION ON PATIENT ASSESSMENT AND TREATMENT. DX & DISP Disposition: Inpatient Decision to Admit Time: 17:42 Departure Impression: Primary Impression: TIA (transient ischemic attack) Additional Impressions: CVA (cerebral vascular accident), Allergic reaction Condition: Stable Referrals: AUDIE DIAZ MD (PCP) JUNO WELDON MD Oct 12, 2024 15:49
--- NOTE | 2024-10-12 16:02 | HMCIMG ---
Exam Type: CT HEAD/BRAIN W/O CONTRAST Clinical Information: STROKE SYMPTOMS Comparison: None CT Dose Index (CTDI): 57.33 mGy Dose Length Product (DLP): 956.79 total mGy-cm Findings: The examination shows atrophy. There is low attenuation throughout the periventricular white matter locations, consistent with chronic small vessel ischemic changes. No acute intra- or extra-axial fluid collections are seen. There is no evidence of acute or chronic hemorrhage. There is no mass effect or shift of midline structures. There are no areas to suggest acute infarct. The skull windows show no significant abnormalities. IMPRESSION: 1. ATROPHY AND CHRONIC SMALL VESSEL ISCHEMIC CHANGES. This study was performed using dose reduction techniques to include automated exposure control and/or adjustment of the mA and/or kV according to patient size.
[2024-10-12 16:06] LABS: BASOPHILS # (AUTO) 0.06 K/uL (0.00-0.20); BASOPHILS % (AUTO) 0.7 % (0.0-5.0); EOSINOPHILS % (AUTO) 2.2 % (0.0-8.0); HEMATOCRIT 42.3 % (36-48); IMMATURE GRANULOCYTE ABSOLUTE 0.02 K/uL (0-1); LYMPHOCYTES # (AUTO) 3.3 K/uL (1.0-4.8); LYMPHOCYTES % (AUTO) 36.5 % (21.0-51.0); MEAN CORPUSCULAR HEMOGLOBIN 26.3 pg (27.0-33.0); MEAN CORPUSCULAR HGB CONC 31.9 g/dL (32.0-36.0); MEAN CORPUSCULAR VOLUME 82.5 fL (79-99); MONOCYTES # (AUTO) 0.6 K/uL (0.1-1.0); MONOCYTES % (AUTO) 6.4 % (3.0-13.0); NEUTROPHILS # (AUTO) 4.8 K/uL (1.8-7.7); PLATELET COUNT (AUTO) 251 K/uL (130-400); RED BLOOD CELL COUNT(AUTO) 5.13 MIL/uL (4.00-5.50); RED CELL DISTRIBUTION WIDTH 14.1 % (11.0-15.5)
[2024-10-12 16:13] LABS: CREATININE 0.9 mg/dL (0.5-1.0); POTASSIUM 3.6 mmol/L (3.5-5.1)
[2024-10-12 16:15] LABS: INR 0.99 (0.85-1.15); PROTHROMBIN TIME 10.5 SEC (9.6-11.6)
[2024-10-12 16:16] LABS: PARTIAL THROMBOPLASTIN TIME 27.2 SEC (26.3-35.5)
[2024-10-12 16:29] LABS: B-TYPE NATRIURETIC PEPTIDE 34 pg/mL (0-100)
[2024-10-12] MEDS: acetaMINOPHEN 500 MG TABLET PO ONE ×2 (16:58→20:45)
--- NOTE | 2024-10-12 17:07 | HMCIMG ---
CHEST 1VW CLINICAL HISTORY: stroke COMPARISON: 08/24/2024 TECHNIQUE: Single view of the chest was obtained. FINDINGS: Lungs are clear. The cardiac size and mediastinum are unremarkable. The bony structures are stable. IMPRESSION: No acute cardiopulmonary process identified.
--- NOTE | 2024-10-12 17:17 | CONS ---
CONSULT NOTE: [facility] Note # Demographics Consult Type: Acute Stroke Level 1 (0-4.5 hrs) Patient Location: Emergency Room First Name: TIERRA Last Name: ANDRY Date of : 1950 Age: 74 Gender: Female Facility: [facility] Time of Initial Page (Central Time): 10/12/2024 16:54 Time of Return Call (Central Time): 10/12/2024 16:54 # HPI History: right face and arm numbness. slurred speech. CT brain negative. LKN 2 hours ago at 3 pm. has been having on and off headache for last 3-4 days. mainly at night. also report h/o recent hematuria of unclear etiology. "Every time my doctor checks my urine, he tells me that you have blood in it" Last Known Normal: - I have collected independent history specific to time last normal or last known well. We have collaborated with the provider and at this time, we have the most current timeline with the information that is available. 3 pm Possible Thrombolytic candidate: - not on warfarin or NOACs - no intracranial hemorrhage history - no recent major surgery - no known active major internal bleeding - no known blood disorders - no stroke in last 3 months Associated Symptoms: - headache # Scores Time of exam and NIHSS (Central Time): 10/12/2024 17:00 Level of Consciousness 1a: [0] = Alert; keenly responsive LOC Questions 1b: [0] = Answers both questions correctly LOC Commands 1c: [0] = Performs both tasks correctly Best Gaze 2: [0] = Normal Visual 3: [0] = No visual loss Facial Palsy 4: [1] = Minor paralysis Motor Arm Left 5a: [0] = No drift Motor Arm Right 5b: [0] = No drift Motor Leg Left 6a: [0] = No drift Motor Leg Right 6b: [0] = No drift Limb Ataxia 7: [0] = Absent Sensory 8: [1] = Qyad-zo-tujslwrv sensory loss Best Language 9: [0] = No aphasia Dysarthria 10: [0] = Normal Extinction and Inattention 11: [0] = No abnormality NIHSS Total: 2 # PMH-FH-SH Past Medical History: - Diabetes - hyperlipidemia - hypertension Social History: - non-smoker - non-drinker # Data Time Head CT personally read by me (Central Time): 10/12/2024 16:[address]: - no bleed - preliminarily reviewed by me, please refer to radiology read for official reading - per radiologist read # Assessment Impression: - Ischemic Stroke (Acute) # Plan Thrombolytic/Intervention: NOT IV Thrombolysis or IA Intervention candidate Thrombolytic Exclusion (< 3 hour window): - non-disabling deficit Thrombolytic Exclusion: discussed option of TNK with pt, her son and ED doc. In setting of recent hematuria and mild nondisabling deficits- risks appear to outweigh benefit. All in agreement. Intraarterial Exclusion: - clinical exam not consistent with presence of large vessel occlusion (LVO), can reconsider if LVO found on vascular imaging Target Blood Pressure: - SBP < 220 - DBP < 120 Labs: - B12 - hemoglobin A1c - TSH - lipid panel Imaging: (urgency: STAT): - CT Angiogram Head and CT Angiogram Neck AND call back with results if abnormal Imaging: (urgency: routine): - MRI Brain without contrast Diagnostic Test: - echo with bubble study Therapy/Evaluation: - NPO until swallow evaluation - PT/OT evaluation - speech/swallow consultation Medication: - aspirin 81 mg daily - start statin with goal of LDL < 70 may need to adjust based on w/u DVT Prophylaxis: - SCD - chemical DVT prophylaxis Other: - If patient has any neurological deterioration please call me back immediately - telemetry monitoring - I have discussed my recommendations with the referring provider - will need event monitor or loop recorder as outpatient if atrial fibrillation not found as inpatient - permissive hypertension # Logistics Attestation of consult completion: The patient is located at: [facility]. Facility staff participated in the visit. I performed this telemedicine visit from my offsite office utilizing interactive 2 way audio and visual telecommunication technology. Total time spent in telemedicine encounter: I spent 21 minutes reviewing clinical data and/or imaging, obtaining history, examining the patient, communicating with the onsite care team, and in preparation of this report. # Demographics First Name: TIERRA Last Name: ANDRY Facility: [facility] MICHAEL BOND MD Oct 12, 2024 17:17
[2024-10-12] MEDS: ASPIRIN 325MG TAB PO ONE (18:12)
--- NOTE | 2024-10-12 18:14 | NUR ---
TRANSFER REQUEST FOR NEUROLOGY PER DR WELDON AND DR MEIER . JORDY BOLAÑOS
--- NOTE | 2024-10-12 18:30 | NUR ---
TRANSFER CALL PLACE TO [facility] [phone] SPOKE WITH PILAR INTAKE NURSE . INFORMATION PROVIDED AND WILL CALL BACK. JORDY BOLAÑOS
[2024-10-12] MEDS: DiphenhydrAMINE HCL 25 MG CAPSULE PO ONE (18:59)
--- NOTE | 2024-10-12 19:03 | NUR ---
IMAGING CD MADE FOR TRANSFER. VALVE LAPPER JANEEN SPENCE PICKED UP CD.
--- NOTE | 2024-10-12 19:15 | NUR ---
TRANSFER CALL BACK FROM INTAKE NURSE WITH [place] [facility] [place] PRIMARY NURSE TO CALL REPORT TO [phone] AND EMS WHEN READY. JORDY BOLAÑOS
--- NOTE | 2024-10-12 19:27 | NUR ---
TELE NEURO CONSULT WITH DR BOND Addendum: 10/12/24 at 1928 by SINTIA TELE NEURO AT 17:00
[2024-10-12 19:28] LABS: APPEARANCE,URINE CLEAR (CLEAR); BILIRUBIN,URINE NEGATIVE (NEGATIVE); COLOR,URINE COLORLESS (YELLOW); GLUCOSE, URINE (UA) 500 mg/dL (NEGATIVE); KETONES,URINE NEGATIVE (NEGATIVE); LEUKOCYTE ESTERASE ,URINE NEGATIVE Leu/uL (NEGATIVE); NITRATE,URINE NEGATIVE (NEGATIVE); OCCULT BLOOD,URINE NEGATIVE (NEGATIVE); PROTEIN,URINE NEGATIVE (NEGATIVE); UROBILINOGEN,URINE 0.2 mg/dL (0.2-1.0)
[2024-10-12 19:38] LABS: ADD UA MICROSCOPIC YES
[2024-10-12 19:41] VITALS: TEMP 98.5
--- NOTE | 2024-10-12 19:48 | NUR ---
REPORT CALLED TO [facility] [place] [place] ED NURSE
[2024-10-12 19:55] LABS: RBC,URINE 0-1 /HPF (0-1)
[2024-10-12 22:29] VITALS: BP 162/88; PULSE 77; RESP 18; O2SAT 96
--- NOTE | 2024-10-13 07:14 | EKG ---
[facility] Test Date: 2024-10-12 Test Time: 15:45:12 Pat Name: TIERRA WILDE Department: ED Room: Gender: F [employer]: [id number] : 1950 Requested By: JUNO WELDON Order Number: [id number] Reading MD: Austin Agrawal Measurements Intervals [place] Rate: 79 P: 19 MN: 151 QRS: -19 QRSD: 95 T: 23 QT: 399 QTc: 458 Interpretive Statements Sinus rhythm Nonspecific T abnormalities, anterior leads Compared to ECG 08/24/2024 15:01:50 T-wave abnormality now present Electronically Signed On 10-15-2024 16:05:08 CDT by Austin Agrawal Please click the below link to view image of tracing.
== END 2024-10-12 19:48 ==
LOC: EDH 15:20
DX: T78.40XA Allergy, unspecified, initial encounter (principal); I63.9 Cerebral infarction, unspecified; I10 Essential (primary) hypertension; E78.00 Pure hypercholesterolemia, unspecified; E11.9 Type 2 diabetes mellitus without complications; R47.01 Aphasia; Z88.2 Allergy status to sulfonamides; Z88.0 Allergy status to penicillin; Z88.1 Allergy status to other antibiotic agents; Z79.899 Other long term (current) drug therapy; Z79.4 Long term (current) use of insulin; Z79.82 Long term (current) use of aspirin; Z79.84 Long term (current) use of oral hypoglycemic drugs; Z79.85 Long-term (current) use of injectable non-insulin antidiabetic drugs; X58.XXXA Exposure to other specified factors, initial encounter
CPT/HCPCS: 99291; 70450; 82550; 83721; 84484; 80048; 83880; 85025; 85610; 85730; 82948; 81001; 36415; 71045; 93005; Q0163

== ENCOUNTER → 2025-04-13 | Outpatient (CLI) | payer OTHER ==
[~2025-04-13] MED LIST changes: +IBUP-1492 PO; -IBUP-2070 PO; +IOHEXOL 350 MG/ML 100ML INFUS..BTL IV ONE
--- NOTE | 2025-04-14 10:35 | CARDIOLOGY ---
RAD REPORT: [facility] CT ANGIO RADIOLOGY REPORT: CORONARY CT ANGIOGRAPHY DATE: Apr 14, 2025 QUALITY: Excellent CLINICAL HISTORY AND INDICATION: [ non-obstructive LAD CAD] TECHNIQUE: After obtaining a preliminary surgery center administrator image, contrast imaging performed on an Aquillon [id number] scanner. A dedicated, limited window, coronary imaging protocol was used, with single breath-hold, retrospective ECG gating, and automated arrhythmia rejection. 100 cc of low osmolar contrast agent: Omnipaque 350 was delivered via a 18-gauge IV catheter in the right antecubital fossa, using a power injector and followed by 60 cc of normal saline bolus as a chaser. Collimated images were reformatted at 0.5 mm intervals, and sent to an offline independent workstation for interpretation, using 3D anatomic reconstructions: Curved multiplanar reconstructions, maximum intensity projections, and multiplanar imaging. No metoprolol was administered prior to scanning due to low baseline heart rate. 0.8 mg SL nitroglycerin was given. CORONARY ARTERY DESCRIPTIONS: The coronary arteries arise in normal position. Left main coronary artery: Normal caliber vessel that bifurcates into the LAD and LCx. No stenosis. Left anterior descending coronary artery: Normal caliber vessel and gives rise to diagonal and septal branches. There is calcified plaque in the mid LAD with 30-40% stenosis. The LAD in this segment is 2.6 mm and tapers distally. Left circumflex coronary artery: Normal caliber, nondominant and gives rise to several OM branches. No stenosis. Right coronary artery: Large, dominant vessel giving rise to the PL and PDA branches. No stenosis. CAD-RADs: 2, mild non-obstructive CAD. Thoracic Aorta: Normal diameter. Ashwini Pittman MD Cardiovascular Disease [facility] ASHWINI PITTMAN MD Apr 14, 2025 10:35
== END | disposition home or self-care (01) ==
LOC: RAH 07:21
PROVIDERS: ATTEND Internal Medicine Cardiovascular Disease
DX: I25.10 Atherosclerotic heart disease of native coronary artery without angina pectoris (principal); R07.9 Chest pain, unspecified
CPT/HCPCS: 75574; Q9967